=== PATIENT | female | born 1950 | race Caucasian/White ===

== ENCOUNTER → 2017-12-21 08:33 | Outpatient (CLI) | payer MEDICARE, OTHER, SELFPAY ==
[2017-12-21 09:35] LABS: Add Manual Diff / Slide Review NO; Basophils Percent Auto 0.8 % (0-2); Eosinophils Percent Auto 3.1 % (2-4); Hematocrit 36.5 % (36-46); Hemoglobin 12.7 g/dL (12.0-16.0); Lymphocytes Percent Auto 32.5 % (25-40); Mean Corpuscular HGB Conc 34.7 % (30-36); Mean Corpuscular Hemoglobin 29.1 PG (26-34); Monocytes Percent Auto 5.9 % (3-14); Neutrophils Absolute Auto 3200 /uL (3000-5900); Neutrophils Percent Auto 57.7 % (50-75); Platelet Count 239 X10^3/uL (150-400); Red Blood Cell Count 4.34 X10^6/uL (4.0-5.2); Red Cell Distribution Width 13.9 % (11.6-14.8); White Blood Cell Count 5.5 X10^3/uL (4.5-11.0)
[2017-12-21 09:48] LABS: Alanine Aminotransferase 19 IU/L (9-52); Albumin 4.1 g/dL (3.5-5.0); Albumin Globulin Ratio 1.3 (1.0-2.8); Alkaline Phosphatase 53 U/L (38-126); Aspartate Aminotransferase 18 IU/L (14-36); Bilirubin Total 0.6 mg/dL (0.2-1.3); Blood Urea Nitrogen 24 mg/dL (7-17); Calcium 9.5 mg/dL (8.4-10.2); Carbon Dioxide 28 mmol/L (22-32); Chloride 103 mmol/L (98-107); Cholesterol 174 mg/dL (140-199); Estimated Glomerular Filt Rate > 60.0 mL/min (>60); Globulin 3.2 g/dL (1.7-4.1); Glucose 180 mg/dL (80-110); HDL Cholesterol 49 mg/dL (40-60); HEMOLYSIS < 15 (0-50); LDL Cholesterol Calculated 97 mg/dL (<100); Sodium 141 mmol/L (137-145); Total Protein 7.3 g/dL (6.3-8.2); Triglycerides 142 mg/dL (35-150)
[2017-12-21 10:05] LABS: Hemoglobin A1C% w Est Avg Glu 7.9 % (4.0-6.0)
[2017-12-21 10:06] LABS: Creatinine Urine Random 66.1 mg/dL
[2017-12-21 10:12] LABS: Microalbumin Urine Random < 0.6 mg/dL (0-1.6)
[2017-12-21 10:50] LABS: Thyroid Stimulating Hormone 2.02 uIU/mL (0.47-4.68)
== END ==
PROVIDERS: PCP Family Medicine; Visit Provider Family Medicine
DX: E78.2 Mixed hyperlipidemia (principal); E11.9 Type 2 diabetes mellitus without complications
CPT/HCPCS: 36415; 80053; 80061; 82043; 82570; 83036; 84443; 85025

== ENCOUNTER → 2018-03-30 11:21 | Outpatient (CLI) | payer MEDICARE, OTHER, SELFPAY ==
[2018-03-30 12:20] LABS: Hemoglobin A1C% w Est Avg Glu 8.6 % (4.0-6.0)
[2018-03-30 12:52] LABS: BUN Creatinine Ratio 25.6 (6-22); Blood Urea Nitrogen 23 mg/dL (7-17); Calcium 9.9 mg/dL (8.4-10.2); Carbon Dioxide 26 mmol/L (22-32); Chloride 102 mmol/L (98-107); Estimated Glomerular Filt Rate > 60.0 mL/min (>60); Glucose 220 mg/dL (80-110); HEMOLYSIS < 15 (0-50); Sodium 143 mmol/L (137-145)
== END ==
PROVIDERS: PCP Family Medicine; Visit Provider Family Medicine
DX: E11.9 Type 2 diabetes mellitus without complications (principal)
CPT/HCPCS: 36415; 80048; 83036

== ENCOUNTER 2018-06-10 10:22 | Emergency (ER) | payer MEDICARE, OTHER, SELFPAY ==
[2018-06-10 10:29] VITALS: BP 153/78; PULSE 68; RESP 16; TEMP 36.3; O2SAT 100
[2018-06-10 10:31] VITALS: BP 163/80; PULSE 68; RESP 16; TEMP 36.3; O2SAT 100; BMI 29.9
[2018-06-10] MEDS: PANTOPRAZOLE 40 MG VIAL IV (10:35)
[2018-06-10] MEDS: SODIUM CHLORIDE 0.9% 1,000 ML 1000 ML IV ×2 (10:35→11:46)
[2018-06-10 10:51] LABS: Add Manual Diff / Slide Review NO; Basophils Percent Auto 0.4 % (0-2); Hemoglobin 14.1 g/dL (12.0-16.0); Lymphocytes Percent Auto 6.1 % (25-40); Mean Corpuscular HGB Conc 34.4 % (30-36); Mean Corpuscular Hemoglobin 28.7 PG (26-34); Mean Corpuscular Volume 83.6 fL (80-100); Monocytes Percent Auto 4.5 % (3-14); Neutrophils Absolute Auto 13900 /uL (3000-5900); Platelet Count 270 X10^3/uL (150-400); White Blood Cell Count 15.7 X10^3/uL (4.5-11.0)
[2018-06-10 11:07] LABS: Alanine Aminotransferase 26 IU/L (9-52); Albumin 4.5 g/dL (3.5-5.0); Albumin Globulin Ratio 1.6 (1.0-2.8); Alkaline Phosphatase 76 U/L (38-126); Aspartate Aminotransferase 14 IU/L (14-36); BUN Creatinine Ratio 25.7 (6-22); Bilirubin Total 0.8 mg/dL (0.2-1.3); Blood Urea Nitrogen 18 mg/dL (7-17); Calcium 9.6 mg/dL (8.4-10.2); Carbon Dioxide 23 mmol/L (22-32); Chloride 100 mmol/L (98-107); Estimated Glomerular Filt Rate > 60.0 mL/min (>60); Globulin 2.9 g/dL (1.7-4.1); Glucose 341 mg/dL (80-110); HEMOLYSIS < 15 (0-50); Lipase 27 U/L (23-300); Potassium 4.7 mmol/L (3.4-5.1); Sodium 140 mmol/L (137-145); Total Protein 7.4 g/dL (6.3-8.2)
[2018-06-10 11:15] LABS: Lactate (Lactic Acid) 2.1 mmol/L (0.7-2.1)
--- NOTE | 2018-06-10 11:42 | ED.NAVMDI ---
HPI - Nausea/Vomiting/Diarrhea General Chief complaint: Nausea/Vomiting/Diarrhea Stated complaint: Nausea / Vomiting / Dizzy Time Seen by Provider: 06/10/18 10:27 Source: patient and EMS Mode of arrival: ambulatory Limitations: no limitations History of Present Illness HPI Narrative: Patient is 67-year-old female who presents with nausea and vomiting ongoing for 2 days she has been unable to keep anything down. She has had some loose stool but not diarrhea. She has not had any traveling or fever. Noone else is sick at. I am unable to tolerate any fluids. MD complaint: nausea and vomiting Location of pain: diffuse Related Data Home Medications Medication Instructions Recorded Confirmed omeprazole 20 mg PO DAILY PRN #0 07/03/11 06/10/18 Calcium 1 dose PO DAILY 06/10/18 06/10/18 Vitamin D3 1 cap PO DAILY 06/10/18 06/10/18 metformin 1,500 mg PO QAM 06/10/18 06/10/18 metformin [Glucophage] 1,000 mg PO QPM 06/10/18 06/10/18 simvastatin [Zocor] 40 mg PO QPM 06/10/18 06/10/18 Previous Rx's Medication Instructions Recorded Glucose: Test Strips 0 str SEECOM SEE INSTRUCTIONS #150 07/21/17 glimepiride [Amaryl] 4 mg PO BID #180 tab 09/16/17 ondansetron 4 mg PO Q8H PRN #10 tab 06/10/18 Allergies Allergy/AdvReac Type Severity Reaction Status Date / Time codeine [CODEINE] Allergy Severe TONGUE Verified 06/10/18 10:31 SWELLS erythromycin base Allergy Mild GI DISTRESS Verified 06/10/18 10:31 [ERYTHROMYCIN BASE] Penicillins Allergy Mild Confusion Verified 06/10/18 10:44 Review of Systems Review of Systems GENERAL: Denies chills, fatigue, malaise, fever, sweats, travel HEENT: Denies sinus pain, ear pain, sore throat, difficulty swallowing, neck pain RESPIRATORY: Denies dyspnea, cough, wheezing, hemoptysis, sputum. CARDIOVASCULAR: Denies chest pain, palpitations, orthopnea, edema GASTROINTESTINAL: Denies nausea, vomiting, abdominal pain, diarrhea, constipation, melena. : See HPI MUSCULOSKELETAL: Denies weakness, joint pain, or bony pain SKIN: No rash, no erythema, no pruritus NEUROLOGIC: Denies weakness, dizziness, headache, numbness, change in speech, confusion PSYCHIATRIC: No concerning psychosocial issues. 12 point review of systems is negative except for those stated above and HPI [facility] Medical History Diabetes (Acute) Hyperlipidemia (Acute) Social History Smoking Status: Former smoker Exam Initial Vital Signs Initial Vital Signs: Vital Signs Temperature 97.3 F L 06/10/18 10:29 Pulse Rate 68 06/10/18 10:29 Respiratory Rate 16 06/10/18 10:29 Blood Pressure 153/78 H 06/10/18 10:29 Pulse Oximetry 100 06/10/18 10:29 GENERAL: Weak appearing elderly female. Normal body habitus. alert and oriented x3 HEENT: Head atraumatic,EOMI, pupils reactive, face symmetric, dry mucous membranes CARDIOVASCULAR: Regular rate and rhythm without murmurs, rubs or gallops. RESPIRATORY: Breath sounds equal bilaterally, no wheezes rales or rhonchi. ABDOMEN: Soft, diffusely tender no guarding or rebound : No CVA tenderness EXTREMITIES: Normal range of motion, no clubbing or edema. Neurovascularly intact NEUROLOGICAL: Alert and oriented x4.Normal gait and speech. Cranial nerves II through XII grossly intact. SKIN: Warm, dry, no laceration, no petechiae, no rashes or lesions. Course Orders Ordered: ED Orders 06/10/18 10:45 Complete Blood Count AUTO DIFF Stat Comprehensive Metabolic Panel Stat Lactate (Lactic Acid) Stat Lipase Stat Discontinued Medications Sodium Chloride (Normal Saline 0.9%) 1,000 mls @ 1,000 mls/hr IV CONT JANINA Last Infusion: 06/10/18 11:44 Dose: 0 mls/hr Admin: 06/10/18 10:35 Dose: 1,000 mls/hr Sodium Chloride (Normal Saline 0.9%) 1,000 mls @ 1,000 mls/hr IV BOLUS ONE Stop: 06/10/18 12:43 Last Infusion: 06/10/18 12:45 Dose: 0 mls/hr Admin: 06/10/18 11:46 Dose: 1,000 mls/hr Sodium Chloride (Normal Saline 0.9%) 1,000 mls @ 250 mls/hr IV BOLUS ONE Stop: 06/10/18 16:45 Last Infusion: 06/10/18 14:15 Dose: 250 mls/hr Admin: 06/10/18 12:47 Dose: 250 mls/hr Metoclopramide HCl (Reglan) 10 mg IV NOW ONE Stop: 06/10/18 12:42 Last Admin: 06/10/18 12:42 Dose: 10 mg Pantoprazole Sodium (Protonix) 40 mg IV NOW ONE Stop: 06/10/18 10:32 Last Admin: 06/10/18 10:35 Dose: 40 mg Vital Signs - 8 hr 06/10/18 10:29 06/10/18 10:31 06/10/18 11:43 Temperature 97.3 F L 97.3 F L Pulse Rate 68 68 80 Respiratory Rate 16 16 Blood Pressure 163/80 H Blood Pressure [Left Arm] 153/78 H 142/74 H Pulse Oximetry 100 100 100 06/10/18 14:09 Temperature Pulse Rate 101 H Respiratory Rate 16 Blood Pressure 132/72 Blood Pressure [Left Arm] Pulse Oximetry 99 MDM - Nausea/Vomiting/Diarrhea Lab Data Attestation: I reviewed the patient's lab results. Anion gap 17 Result diagrams: 06/10/18 10:45 06/10/18 10:45 Lab Results 06/10/18 06/10/18 06/10/18 Range/Units 10:45 10:45 10:45 WBC 15.7 H (4.5-11.0) X10^3/uL RBC 4.90 (4.0-5.2) X10^6/uL Hgb 14.1 (12.0-16.0) g/dL Hct 41.0 (36-46) % MCV 83.6 (80-100) fL MCH 28.7 (26-34) PG MCHC 34.4 (30-36) % RDW 14.0 (11.6-14.8) % Plt Count 270 (150-400) X10^3/uL Neut % (Auto) 89.0 H (50-75) % Lymph % (Auto) 6.1 L (25-40) % [place] % (Auto) 4.5 (3-14) % Eos % (Auto) 0.0 L (2-4) % Baso % (Auto) 0.4 (0-2) % Neut # (Auto) 81202 H (3806-3458) /uL Sodium 140 (137-145) mmol/L Potassium 4.7 (3.4-5.1) mmol/L Chloride 100 (98-107) mmol/L Carbon Dioxide 23 (22-32) mmol/L BUN 18 H (7-17) mg/dL Creatinine 0.70 (0.52-1.04) mg/dL Estimated GFR > 60.0 (>60) mL/min BUN/Creatinine Ratio 25.7 H (6-22) Glucose 341 H (80-110) mg/dL Lactate 2.1 (0.7-2.1) mmol/L Calcium 9.6 (8.4-10.2) mg/dL Total Bilirubin 0.8 (0.2-1.3) mg/dL AST 14 (14-36) IU/L ALT 26 (9-52) IU/L Alkaline Phosphatase 76 (38-126) U/L Total Protein 7.4 (6.3-8.2) g/dL Albumin 4.5 (3.5-5.0) g/dL Globulin 2.9 (1.7-4.1) g/dL Albumin/Globulin Ratio 1.6 (1.0-2.8) Lipase 27 (23-300) U/L Urine Dip Bedside Urine Glucose 1000 mg/dl Bedside Urine Bilirubin - Negative Bedside Urine Ketone +++ 80 Urine Specific Otis 1.030 Bedside Urine Occult Blood - Negative Bedside Urine pH 6.0 Bedside Urine Protein - Negative Bedside Urine Urobilinogen - Negative Bedside Urine Nitrite - Negative Bedside Urine Leukocytes - Negative Esterase MDM Narrative Medical decision making narrative: Patient is no feeling vomiting but is still nauseated. Glucose slightly elevated minimal anion gap. She received 2 and 0.5 L of IV fluid she is tolerating oral fluids. She is able to keep down some kayode amrik and water. She does have some mild leukocytosis. Abdomen is reexamined and remains soft nontender and no localization of pain. This time no sign of DKA likely viral gastroenteritis. Patient overall feels better and ready and able to go. Discharge Plan Departure Patient Disposition: Home Clinical Impression: Gastroenteritis Discharge Date/Time: 06/10/18 14:10 Interventions: ED Discharge Assessment Last Done: 06/10/18 14:09 Instructions: DI for Viral Gastroenteritis -- Adult Activity Restrictions/Additional Instructions: 1) You have been diagnosed with gastroenteritis 2) What to do: Drink frequent but small amounts of fluids. I recommend Gatorade or a Gatorade-like product, as it has small amounts of sugar and salts that improve fluid retention. 3) Take medications as directed: FAXED TO [facility] Zofran 4 mg every 6-8 hours if needed for nausea or vomiting 4) Follow up with your primary care provider in 2-3 days 5) Return to ER if you should have any new or worsening symptoms such as, unable to hold down fluids despite use of anti-nausea medications and the small volume oral rehydration strategy. Prescriptions: New ondansetron 4 mg tablet,disintegrating 4 mg PO Q8H PRN (Reason: nausea and vomiting) Qty: 10 RF: 0 No Action omeprazole 20 mg Tablet,Delayed Release (Dr/Ec) 20 mg PO DAILY PRN (Reason: Acid Reflux) Qty: 0 RF: 0 Glucose: Test Strips SEECOM SEE INSTRUCTIONS Qty: 150 RF: 5 glimepiride [Amaryl] 4 MG tablet 4 mg PO BID Qty: 180 RF: 3 metformin [Glucophage] 1,000 mg tablet 1,000 mg PO QPM RF: 0 metformin 1,000 mg tablet 1,500 mg PO QAM RF: 0 Calcium 1 dose PO DAILY RF: 0 Vitamin D3 1 cap PO DAILY RF: 0 simvastatin [Zocor] 40 mg tablet 40 mg PO QPM RF: 0 Referrals: Lucio Joaquin MD [Primary Care Provider] -
[2018-06-10 11:43] VITALS: BP 142/74; PULSE 80; O2SAT 100
[2018-06-10] MEDS: METOCLOPRAMIDE 10 MG/2 ML INJ IV (12:42)
[2018-06-10] MEDS: SODIUM CHLORIDE 0.9% 1,000 ML 250 ML IV (12:47)
[2018-06-10 14:09] VITALS: BP 132/72; PULSE 101; RESP 16; O2SAT 99
== END 2018-06-10 14:10 | disposition home or self-care (01) ==
PROVIDERS: Emergency Provider Emergency Medicine; PCP Family Medicine
DX: K52.9 Noninfective gastroenteritis and colitis, unspecified (principal)
CPT/HCPCS: 80053; 81003; 83605; 83690; 85025; 96361; 96374; 96375; 99283; 99284; C9113; J2765

== ENCOUNTER → 2018-06-21 10:45 | Outpatient (CLI) | payer MEDICARE, OTHER, SELFPAY ==
[2018-06-21 11:24] LABS: BUN Creatinine Ratio 22.2 (6-22); Blood Urea Nitrogen 20 mg/dL (7-17); Calcium 9.8 mg/dL (8.4-10.2); Carbon Dioxide 27 mmol/L (22-32); Chloride 94 mmol/L (98-107); Estimated Glomerular Filt Rate > 60.0 mL/min (>60); Glucose 394 mg/dL (80-110); HEMOLYSIS < 15 (0-50); Potassium 4.9 mmol/L (3.4-5.1); Sodium 135 mmol/L (137-145)
== END ==
PROVIDERS: PCP Family Medicine; Visit Provider Family Medicine
DX: E11.9 Type 2 diabetes mellitus without complications (principal)
CPT/HCPCS: 36415; 80048; 83036

== ENCOUNTER → 2018-06-23 15:27 | Outpatient (CLI) | payer MEDICARE, OTHER, SELFPAY ==
--- NOTE | 2018-06-23 15:29 | DI.MRI.S_ITS ---
PROCEDURE: MR HEAD/BRAIN WO CON INDICATIONS: vertigo TECHNIQUE: Non-contrast axial T1 spin echo, axial T2 fast spin echo, sagittal and axial FLAIR, coronal T2 fast spin echo, axial gradient echo, axial diffusion and ADC through the brain. COMPARISON: None. FINDINGS: Image quality: Incomplete examination. The examination was terminated at the patient's request because of claustrophobia. CSF spaces: Ventricles appear symmetric in size and shape. Basal cisterns are patent. No extra-axial fluid collections. Brain: Diffusion-weighted images show restricted diffusion involving the right cerebellar hemisphere extending to the cerebellar tonsil with associated edema, consistent with subacute infarct. There is a small area of old infarct in the left parietal lobe. No intracranial bleeds or mass effects. There is mild cerebral volume loss for age. There are mild periventricular and deep white matter chronic small vessel ischemic changes. Brainstem appears normal. No chronic ischemic insults. Normal intravascular flow voids are present. Skull and face: Calvarial bone marrow is normal in signal. Orbits are normal. Sinuses: Sinuses and mastoids are clear. IMPRESSION: 1. Subacute infarction of the right cerebellum. 2. 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 3. Incomplete examination. The patient was unable to tolerate the tests because of claustrophobia. Recommend CT angiogram of the head and neck for further evaluation. I could not reach Dr. Joaquin to give the result since it is after his office hour. The patient was advised to go to the ER. The result was discussed with ER physician Dr. Perez on 06/23/2018 at 06/23/2018. Dictated by: Nathan Menendez M.D. on 06/23/2018 at 17:27 Transcribed by: SARA on 06/23/2018 at 17:41 Approved by: Nathan Meenndez M.D. on 06/23/2018 at 18:04
== END ==
PROVIDERS: PCP Family Medicine; Visit Provider Family Medicine
DX: I63.9 Cerebral infarction, unspecified (principal); F40.240 Claustrophobia; R42 Dizziness and giddiness; E11.9 Type 2 diabetes mellitus without complications
CPT/HCPCS: 70551

== ENCOUNTER 2018-06-23 18:13 | Emergency (ER) | payer MEDICARE, OTHER, SELFPAY ==
[2018-06-23 18:18] VITALS: BP 141/75; PULSE 98; RESP 16; TEMP 36.6; O2SAT 100; BMI 29.9
--- NOTE | 2018-06-23 18:21 | ED.NEUROSD ---
HPI - Neuro Symptoms/Deficit General Chief Complaint: Neuro Symptoms/Deficit Stated Complaint: thinks she had a stroke Time Seen by Provider: 06/23/18 18:20 Source: patient and family Mode of arrival: ambulatory Limitations: no limitations History of Present Illness HPI Narrative: Patient is a 67-year-old female seen here in the emergency department earlier this month for nausea and vomiting. According to that note patient was treated for the nausea and vomiting and discharged home. They followed up with their primary care doctor. Does appear that at some point she started to complain more of lightheadedness and vertigo sensations. Her primary doctor ordered an MRI which she had performed earlier today. That report is attached to this note. It was an incomplete report secondary to the patient's inability to tolerate the MRI secondary to claustrophobia. There was concern about a subacute cerebellar infarct. Patient was sent here to the emergency department for evaluation. Patient states that she still continues to be lightheaded with episodes of dizziness. She states that the medication she has been taking for the nausea and the dizziness have been helping her symptoms. She states that overall she feels better than what she did earlier this month but is still continues to have symptoms. No vision changes. No numbness or tingling the arms and legs. Related Data Home Medications Medication Instructions Recorded Confirmed omeprazole 20 mg PO DAILY PRN #0 07/03/11 06/16/18 Calcium 1 dose PO DAILY 06/10/18 06/16/18 Vitamin D3 1 cap PO DAILY 06/10/18 06/16/18 metformin 1,500 mg PO QAM 06/10/18 06/16/18 metformin [Glucophage] 1,000 mg PO QPM 06/10/18 06/16/18 simvastatin [Zocor] 40 mg PO QPM 06/10/18 06/16/18 meloxicam 7.5 mg tablet 7.5 mg PO BID tab 06/16/18 06/16/18 Previous Rx's Medication Instructions Recorded Glucose: Test Strips 0 str SEECOM SEE INSTRUCTIONS #150 07/21/17 glimepiride [Amaryl] 4 mg PO BID #180 tab 09/16/17 ondansetron 4 mg disintegrating 4 mg PO Q8H PRN #30 tab 06/11/18 tablet lorazepam 0.5 mg tablet 0.25 mg SL BID-TID PRN #20 tab 06/14/18 pioglitazone 15 mg tablet 15 mg PO DAILY #30 tab 06/21/18 Allergies Allergy/AdvReac Type Severity Reaction Status Date / Time codeine [CODEINE] Allergy Severe TONGUE Verified 06/23/18 18:18 SWELLS erythromycin base Allergy Mild GI DISTRESS Verified 06/23/18 18:18 [ERYTHROMYCIN BASE] Penicillins Allergy Mild Confusion Verified 06/23/18 18:18 Review of Systems Review of Systems All systems reviewed & are unremarkable except as noted in HPI and below Constitutional Denies body ache(s), Denies chills, Denies fatigue, Denies fever(s), Denies frequent falls, Denies headache(s), Denies lethargy, Denies malaise and Denies weakness Eyes Denies blurry vision, Denies change in vision, Denies diplopia, Denies loss of vision and Denies photophobia ENT Ears, Nose, Mouth, and Throat: Reports vertigo, Reports dizziness, Denies facial pain, Denies headache(s), Denies nasal congestion, Reports disequilibrium, Denies sore throat and Denies throat swelling Cardiovascular Denies chest pain, Denies edema, Denies palpitations and Denies dyspnea Respiratory Denies cough and Denies dyspnea Gastrointestinal Gastrointestinal: Denies abdominal pain, Denies dyspepsia, Reports nausea and Denies vomiting Genitourinary Denies dysuria and Denies flank pain Musculoskeletal Denies myalgias, Denies arthralgias, Denies numbness and Denies tingling Integumentary/Breasts Denies lesions and Denies rash Neurologic Denies abnormal movements, Denies abnormal speech, Denies behavioral changes, Denies confusion, Reports vertigo, Reports dizziness, Denies frequent falls, Denies headache(s), Denies focal weakness, Denies loss of vision, Denies numbness, Denies radicular pain, Denies sensory deficit, Denies tingling, Denies paresthesias, Reports disequilibrium and Denies weakness Psychiatric Denies behavioral changes and Denies confusion Endocrine Denies fatigue and Denies palpitations Hematologic/Lymphatic Comments: Not on anticoagulation Allergic/Immunologic Denies throat swelling PFSH Medical History Diabetes (Acute) Hyperlipidemia (Acute) Surgical History No pertinent past surgical history (Acute) Social History Smoking Status: Former smoker Exam Initial Vital Signs Initial Vital Signs: Vital Signs Temperature 97.8 F 06/23/18 18:18 Pulse Rate 98 H 06/23/18 18:18 Respiratory Rate 16 06/23/18 18:18 Blood Pressure 141/75 H 06/23/18 18:18 Pulse Oximetry 100 06/23/18 18:18 Const General: cooperative, healthy appearing, comfortable, well developed, well groomed and No acute distress Orientation: alert, awake and oriented x3 HENMT Head: normal to inspection, normocephalic and atraumatic Eyes Pupils: PERRL Resp Effort & Inspection: normal respiratory effort Auscultation: clear to auscultation bilaterally Cardio Rate: regular rate Rhythm: regular rhythm Pulses: radial pulses present GI Inspection: non-distended Palpation: soft, No firm and No tender Back/Spine/Pelvis Back: No CVA tenderness Skin Lesions: no lesions Rashes: no rashes Neuro General: alert, awake, oriented x3, moves all extremities, CN's II-XI intact bilaterally and not confused Cranial Nerves: CN's II-XI intact bilaterally Cognition: normal cognition Speech: speech normal Motor: muscle tone normal throughout Sensory Exam: no sensory deficits noted Coordination: [id number] test normal, Romberg test normal and Does not sway with eyes open Extrem General: normal to inspection and capillary refill normal Psych Appearance: grossly normal Affect: normal affect Attitude: cooperative Thought Process: normal Scores NIH Stroke Scale Level of Conciousness: Alert, keenly responsive Ask month/age: Answers both questions correctly. Open/close eyes, close hand: Performs both tasks correctly Best gaze horizontal: Normal Visual skinner: No visual loss Facial palsy: Normal symetrical movement Left arm drift: No drift for full 10 sec Right arm drift: No drift for full 10 sec Left leg drift: No drift for full 10 sec Right leg drift: No drift for full 10 sec Limb ataxia: Present in two limbs Sensory on face/arms/legs: Normal, no sensory loss Best language: No aphasia, normal Dysarthria: Normal Extinction or inattention: No abnormality Total NIH Stroke scale score: 2 Course Orders Ordered: ED Orders 06/23/18 18:22 CT angio head and neck Stat 06/23/18 18:29 EKG-12 Lead Stat 06/23/18 18:35 Basic Metabolic Panel Stat Complete Blood Count AUTO DIFF Stat Partial Thromboplastin Time Stat Prothrombin Time INR Stat Sodium Chloride (Normal Saline 0.9%) 1,000 mls @ 150 mls/hr IV CONT JANINA Last Admin: 06/23/18 19:11 Dose: 150 mls/hr Discontinued Medications Aspirin (Aspirin) 325 mg PO NOW ONE Stop: 06/23/18 20:11 Last Admin: 06/23/18 20:20 Dose: 325 mg Vital Signs - 8 hr 06/23/18 18:18 06/23/18 19:57 06/23/18 21:00 Temperature 97.8 F Pulse Rate 98 H 94 H 88 Respiratory Rate 16 14 11 L Blood Pressure 141/75 H Blood Pressure [Left Arm] 124/77 116/62 Pulse Oximetry 100 97 99 06/23/18 22:26 Temperature Pulse Rate 86 Respiratory Rate 14 Blood Pressure Blood Pressure [Left Arm] 119/59 L Pulse Oximetry 96 MDM - Neuro Symptoms/Deficit Medical Records Attestation: I reviewed the patient's medical records. Lab Data Attestation: I reviewed the patient's lab results. Result diagrams: 06/23/18 18:35 06/23/18 18:35 Lab Results 06/23/18 06/23/18 06/23/18 Range/Units 18:35 18:35 18:35 WBC 9.8 (4.5-11.0) X10^3/uL RBC 5.09 (4.0-5.2) X10^6/uL Hgb 14.6 (12.0-16.0) g/dL Hct 42.0 (36-46) % MCV 82.5 (80-100) fL MCH 28.7 (26-34) PG MCHC 34.8 (30-36) % RDW 13.9 (11.6-14.8) % Plt Count 271 (150-400) X10^3/uL Neut % (Auto) 71.5 (50-75) % Lymph % (Auto) 20.6 L (25-40) % Jerome % (Auto) 6.6 (3-14) % Eos % (Auto) 0.7 L (2-4) % Baso % (Auto) 0.6 (0-2) % Neut # (Auto) 7000 (4437-7513) /uL PT (10.1-12.7) SECONDS INR (0.9-1.3) APTT 27 (26.4-36.2) SECONDS Sodium 134 L (137-145) mmol/L Potassium 4.4 (3.4-5.1) mmol/L Chloride 97 L (98-107) mmol/L Carbon Dioxide 26 (22-32) mmol/L BUN 16 (7-17) mg/dL Creatinine 0.70 (0.52-1.04) mg/dL Estimated GFR > 60.0 (>60) mL/min BUN/Creatinine Ratio 22.9 H (6-22) Glucose 302 H (80-110) mg/dL Calcium 9.4 (8.4-10.2) mg/dL 06/23/18 Range/Units 18:35 WBC (4.5-11.0) X10^3/uL RBC (4.0-5.2) X10^6/uL Hgb (12.0-16.0) g/dL Hct (36-46) % MCV (80-100) fL MCH (26-34) PG MCHC (30-36) % RDW (11.6-14.8) % Plt Count (150-400) X10^3/uL Neut % (Auto) (50-75) % Lymph % (Auto) (25-40) % Jerome % (Auto) (3-14) % Eos % (Auto) (2-4) % Baso % (Auto) (0-2) % Neut # (Auto) (9539-3405) /uL PT 11.2 (10.1-12.7) SECONDS INR 1.0 (0.9-1.3) APTT (26.4-36.2) SECONDS Sodium (137-145) mmol/L Potassium (3.4-5.1) mmol/L Chloride (98-107) mmol/L Carbon Dioxide (22-32) mmol/L BUN (7-17) mg/dL Creatinine (0.52-1.04) mg/dL Estimated GFR (>60) mL/min BUN/Creatinine Ratio (6-22) Glucose (80-110) mg/dL Calcium (8.4-10.2) mg/dL Imaging Data Brain MRI: Radiologist's impression: [address] [address] Magnetic Resonance Report Signed Patient: Kelly Jernigan MR#: [id number] : 1950 Acct:[id number] Age/Sex: 67 / F Date of Service: 06/23/18 Loc: MRI Accession Number: [id number] Procedure: MR head/brain wo con Ordering Provider: Lucio Joaquin MD PROCEDURE: MR HEAD/BRAIN WO CON INDICATIONS: vertigo TECHNIQUE: Non-contrast axial T1 spin echo, axial T2 fast spin echo, sagittal and axial FLAIR, coronal T2 fast spin echo, axial gradient echo, axial diffusion and ADC through the brain. COMPARISON: None. FINDINGS: Image quality: Incomplete examination. The examination was terminated at the patient's request because of claustrophobia. CSF spaces: Ventricles appear symmetric in size and shape. Basal cisterns are patent. No extra-axial fluid collections. Brain: Diffusion-weighted images show restricted diffusion involving the right cerebellar hemisphere extending to the cerebellar tonsil with associated edema, consistent with subacute infarct. There is a small area of old infarct in the left parietal lobe. No intracranial bleeds or mass effects. There is mild cerebral volume loss for age. There are mild periventricular and deep white matter chronic small vessel ischemic changes. Brainstem appears normal. No chronic ischemic insults. Normal intravascular flow voids are present. Skull and face: Calvarial bone marrow is normal in signal. Orbits are normal. Sinuses: Sinuses and mastoids are clear. IMPRESSION: 1. Subacute infarction of the right cerebellum. 2. 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 3. Incomplete examination. The patient was unable to tolerate the tests because of claustrophobia. Recommend CT angiogram of the head and neck for further evaluation. I could not reach Dr. Joaquin to give the result since it is after his office hour. The patient was advised to go to the ER. The result was discussed with ER physician Dr. Perez on 06/23/2018 at 06/23/2018. Dictated by: Nathan Menendez M.D. on 06/23/2018 at 17:27 Transcribed by: SARA on 06/23/2018 at 17:41 Approved by: Nathan Menendez M.D. on 06/23/2018 at 18:04 CTA head and neck : Radiologist's impression: PROCEDURE: CT ANGIO HEAD AND NECK INDICATIONS: MRI concerning for cerebellum stroke TECHNIQUE: Pre-contrast 4.5 mm thick sections acquired from the foramen magnum to the vertex. After the administration of intravenous contrast, 1 mm thick sections acquired from the aortic arch through the [facility] [place] [facility] [place]. Post-contrast 4.5 mm thick sections then re-acquired from the foramen magnum to the vertex. 3-dimensional epctugg-ndmyrerdb-iohkfgdyiw (MIP) and/or volume rendering reformats were acquired of the central intracranial vasculature and neck separately. COMPARISON: [facility], MR, MR HEAD/BRAIN WO CON, 06/23/2018, 15:44. FINDINGS: Image quality: Excellent. BRAIN: CSF spaces: Ventricles are normal in size and shape. Basal cisterns are patent. No extra-axial fluid collections. Brain: No midline shift. No intracranial bleeds or masses. Hypodensity involving the right cerebellar hemisphere, in keeping with infarction on the earlier comparison MR study. Skull and face: Calvarium and facial bones appear intact, without suspicious lesions. Orbits appear normal. Sinuses: Sinuses and mastoids are clear. HEAD CT ANGIOGRAPHY: Anterior circulation: Intracranial internal carotid arteries are normal in size and flow. The flow within the paired anterior cerebral arteries is normal and symmetric. The flow within the middle cerebral arteries is normal and symmetric. No aneurysms are seen. Posterior circulation: Visualized portions of the vertebral arteries demonstrate normal caliber, and join to form a normal appearing basilar artery. Flow within the posterior cerebral arteries is normal and symmetric. No aneurysms are seen. NECK CT ANGIOGRAPHY: Carotid system: The great vessels demonstrate a conventional anatomy as they arise from the aortic arch. The origins of the common carotid arteries appear patent. The common carotid arteries demonstrate normal caliber and courses. The bifurcation regions are both widely patent. The internal carotid arteries demonstrate normal calibers and courses. Posterior circulation: The origins of the vertebral arteries both appear widely patent. Dominant left vertebral artery. Cervical segment of the right vertebral artery appears occluded. There is reconstitution of the distal V4 segment which is diminutive Normal appearing basilar artery. Soft tissues: Visualized neck soft tissues demonstrate no suspicious abnormalities. Bones: No suspicious bony lesions. Straightening of the normal cervical lordosis and diffuse discogenic changes. IMPRESSION: Occlusion of the right vertebral artery from the origin to the reconstituted right V4 segment, which is diminutive although appears contrast opacified. Hypodensity involving the right cerebellar hemisphere in keeping with acute infarct as seen on the comparison MRI brain dated same day. No intracranial local stenosis or occlusion. Mild carotid atherosclerosis however no hemodynamically significant ICA stenosis. Findings were personally discussed with Dr. Salas in the emergency department 1944 hours on 06/23/18 Any quantitative measurements of stenosis were performed using NASCET criteria. Dictated by: Oral Weathers M.D. on 06/23/2018 at 19:32 ECG Data Attestation: I personally reviewed and interpreted this ECG as follows: Prior ECG tracings: not available for review Interpretation: Sinus rhythm Ventricular rate of 96 Normal axis Normal QRS Normal QTC Q-waves lead [address] T wave changes MDM Narrative Medical decision making narrative: Unknown as to the exact onset of her symptoms. Could have been as long as 3 weeks ago. She states that she has been improving since that time but still having symptoms. MRI and CT scan concerning of a more acute event happening in the right cerebellar area. She also has an occlusion of the right vertebral artery. I discussed the case with Dr. Jimenez with the stroke team at [facility] who evaluated the patient's MRI and CTA. He recommended giving the patient an aspirin which was done. He stated that there appeared to be some minor edema in the right cerebellar region. He thought that because of this and observation. Would be warranted. He did accept the patient in transfer. Patient was kept here in the emergency department until a bed opened up at [facility]. I did inform the patient of the transfer. I also informed her of the results of the CT scan. Her was at bedside for this discussions. They both expressed understanding and agreement. Patient is stable for transport. Critical Care Time Critical Care Time: Yes Total Critical Care Time: 35 Attestation: The high probability of a clinically significant, sudden or life threatening deterioration of the neurologic system(s) required my full and direct attention, intervention and personal management. The aggregate critical care time was 35 minutes. This time is in addition to time spent performing reported procedures but includes the following: [] Data Review and interpretation [] Patient assessment and monitoring of vital signs [] Documentation [] Medication orders and management Coordination of care Discharge Plan Departure Patient Disposition: [facility] Clinical Impression: Cerebellar infarction, Occlusion of right vertebral artery Prescriptions: No Action omeprazole 20 mg Tablet,Delayed Release (Dr/Ec) 20 mg PO DAILY PRN (Reason: Acid Reflux) Qty: 0 RF: 0 Glucose: Test Strips SEECOM SEE INSTRUCTIONS Qty: 150 RF: 5 glimepiride [Amaryl] 4 MG tablet 4 mg PO BID Qty: 180 RF: 3 ondansetron 4 mg tablet,disintegrating 4 mg PO Q8H PRN (Reason: nausea and vomiting) Qty: 30 RF: 0 lorazepam [Ativan] 0.5 mg tablet 0.25 mg SL BID-TID PRN (Reason: dizziness or vertigo) Qty: 20 RF: 0 pioglitazone [Actos] 15 mg tablet 15 mg PO DAILY Qty: 30 RF: 3 meloxicam 7.5 mg tablet 7.5 mg PO BID RF: 0 metformin [Glucophage] 1,000 mg tablet 1,000 mg PO QPM RF: 0 metformin 1,000 mg tablet 1,500 mg PO QAM RF: 0 Calcium 1 dose PO DAILY RF: 0 Vitamin D3 1 cap PO DAILY RF: 0 simvastatin [Zocor] 40 mg tablet 40 mg PO QPM RF: 0
--- NOTE | 2018-06-23 18:44 | PC.NURSE ---
2 weeks ago pt was here in ED for dizziness. Pt followed up with pcp following visit and was scheduled for outpatient MRI. After MRI pt was called back to go to the ED due to results. pt is still feeling dizzy which has gotten better over the last 2 weeks but has never been gone. Pt feels like she is lightheaded. Pt denies any blurred vision or pain and is alert/oriented
[2018-06-23 18:51] LABS: Add Manual Diff / Slide Review NO; Basophils Percent Auto 0.6 % (0-2); Eosinophils Percent Auto 0.7 % (2-4); Hemoglobin 14.6 g/dL (12.0-16.0); Lymphocytes Percent Auto 20.6 % (25-40); Mean Corpuscular HGB Conc 34.8 % (30-36); Mean Corpuscular Hemoglobin 28.7 PG (26-34); Mean Corpuscular Volume 82.5 fL (80-100); Monocytes Percent Auto 6.6 % (3-14); Neutrophils Absolute Auto 7000 /uL (1500-7000); Neutrophils Percent Auto 71.5 % (50-75); Platelet Count 271 X10^3/uL (150-400); Red Blood Cell Count 5.09 X10^6/uL (4.0-5.2); Red Cell Distribution Width 13.9 % (11.6-14.8); White Blood Cell Count 9.8 X10^3/uL (4.5-11.0)
[2018-06-23 18:56] LABS: Prothrombin Time 11.2 SECONDS (10.1-12.7)
[2018-06-23 19:04] LABS: PTT Partial Thromboplastin Tim 27 SECONDS (26.4-36.2)
[2018-06-23] MEDS: SODIUM CHLORIDE 0.9% 1,000 ML 150 ML IV (19:11)
[2018-06-23 19:20] LABS: BUN Creatinine Ratio 22.9 (6-22); Blood Urea Nitrogen 16 mg/dL (7-17); Calcium 9.4 mg/dL (8.4-10.2); Carbon Dioxide 26 mmol/L (22-32); Chloride 97 mmol/L (98-107); Estimated Glomerular Filt Rate > 60.0 mL/min (>60); Glucose 302 mg/dL (80-110); HEMOLYSIS 16 (0-50); Potassium 4.4 mmol/L (3.4-5.1); Sodium 134 mmol/L (137-145)
[2018-06-23 19:57] VITALS: BP 124/77; PULSE 94; RESP 14; O2SAT 97
[2018-06-23] MEDS: ASPIRIN 325 MG TABLET PO (20:20)
[2018-06-23 21:00] VITALS: BP 116/62; PULSE 88; RESP 11; O2SAT 99
[2018-06-23 22:26] VITALS: BP 119/59; PULSE 86; RESP 14; O2SAT 96
--- NOTE | 2018-06-23 22:44 | PC.NURSE ---
Report called to Belem WALLACE at [facility]
[2018-06-23 23:48] VITALS: BP 113/69; PULSE 84; RESP 15; O2SAT 99
== END 2018-06-24 00:25 | disposition short-term general hospital (02) ==
PROVIDERS: Emergency Provider Emergency Medicine; PCP Family Medicine
DX: I63.9 Cerebral infarction, unspecified (principal); I65.01 Occlusion and stenosis of right vertebral artery
CPT/HCPCS: 36591; 70496; 70498; 70551; 80048; 85025; 85610; 85730; 93005; 96360; 96361; 99283; 99285; 99291; Q9967

== ENCOUNTER → 2018-08-11 10:05 | Outpatient (CLI) | payer MEDICARE, OTHER, SELFPAY ==
[2018-08-11 12:06] LABS: Hemoglobin A1C% w Est Avg Glu 9.2 % (4.0-6.0)
[2018-08-11 12:18] LABS: BUN Creatinine Ratio 28.8 (6-22); Blood Urea Nitrogen 23 mg/dL (7-17); Calcium 9.9 mg/dL (8.4-10.2); Carbon Dioxide 29 mmol/L (22-32); Chloride 100 mmol/L (98-107); Cholesterol 164 mg/dL (140-199); Estimated Glomerular Filt Rate > 60.0 mL/min (>60); Glucose 220 mg/dL (80-110); HDL Cholesterol 46 mg/dL (40-60); HEMOLYSIS < 15 (0-50); LDL Cholesterol Calculated 94 mg/dL (<100); Sodium 138 mmol/L (137-145); Triglycerides 121 mg/dL (35-150)
--- NOTE | 2018-09-03 15:47 | PM.CARDMON.1 ---
Correspondence Renew Clerk Report Referral & Results Date Patient Seen: 08/11/18 Requesting provider: Lucio Joaquin Indication: Dizziness and giddiness Duration of monitoring (days): 14 Diary information: There were no diary entries from the patient There is 1 patient triggered events associated with sinus rhythm Data: Minimum heart rate identified was 56 beats per minute at 05:08 on 08/25/2018 Maximum sinus heart rate was 150 beats per minute at 12:33 on 08/18/2018 Maximum overall heart rate was 187 beats per minute during an 8 beat run of SVT at 10:31 on 08/16/2018 Less than 1% of identified beats or either ventricular supraventricular in origin Patient 23 runs of an SVT fastest being 187 beats per minute the longest lasting 13.2 sec Impression: Patient with relatively infrequent runs of short duration SVT as above. No other significant dysrhythmia identified No way to correlate patient's symptoms with identified dysrhythmia given lack of patient in put
== END ==
PROVIDERS: PCP Family Medicine; Visit Provider Family Medicine
DX: R42 Dizziness and giddiness (principal); I48.91 Unspecified atrial fibrillation; E11.9 Type 2 diabetes mellitus without complications; E78.2 Mixed hyperlipidemia
CPT/HCPCS: 0296T; 0298T; 36415; 80048; 80061; 83036

== ENCOUNTER 2018-08-11 14:30 | Outpatient (RCR) | payer MEDICARE, OTHER, SELFPAY | END 2018-08-16 14:10 | LOC: SP 14:30 | PROVIDERS: PCP Family Medicine; Visit Provider Physical Medicine & Rehabilitation | DX: I63.9 Cerebral infarction, unspecified (principal) | CPT/HCPCS: 96125 ==

== ENCOUNTER 2018-08-13 10:30 | Outpatient (RCR) | payer MEDICARE, OTHER, SELFPAY ==
--- NOTE | 2018-07-12 14:14 | OT.OP.EVAL ---
Visit Care Team Role Provider Type Lucio Joaquin MD Primary Care Provider Physician Specialty: Family Practice Address: [address] [place] [address], [id number] Email: [email or web address] Levi Lanza MD Attending Provider Non-Staff Specialty: Physical Medicine and Rehab Address: [address] [place] [address], [address], [place], [address] Fax: Email: Occupational Therapy Initial Evaluation OT Outpatient Adult Evaluation Start: 07/12/18 13:25 Freq: Status: Active Protocol: Document 07/12/18 13:26 AMS (Rec: 07/12/18 14:13 AMS [email or web address]) General Information Visit Start Time 12:30 Visit Stop Time 15:18 Total Visit Minutes 48 Visit Number 07/15 Plan of Care Dates 07/12/18-10/04/18 Insurance Information Medicare Treatment Setting Outpatient Care Note Type Initial Evaluation Identification Confirmed Yes Identification Confirmed By Patient and Patient Goals Get strength back; improve endurance Medical History Medical History Form completed by patient and placed in paper chart. Significant for acute cerebellar stroke; type 2 diabetes mellitus; essential hypertension; strabismus; bilateral hearing loss; and dizziness. Patient received inpatient intensive rehab (OT, PT,HOT TOP LINER HELPER) at [facility] located in [place], [place] from 06/26/2018 - 07/03/2018. Patient was d/c to home w/ spouse. Patient is currently receiving outpatient PT 1 to 2 x per week based on therapist availability; patient is scheduled for outpatient HOT TOP LINER HELPER evaluation on 07/19/18. Patient is to ambulate w/ SPC and/or walking sticks at this time based on patient report. However, patient arrived to OT evaluation w/ no assistive mobility AE. Therapy Pain Assessment When Pain Assessed pre-tx Pain Present Denied Pain Patient Questionnaires Quick Dash UE Score 43.18 Quick Dash UE Impairment 40 to 59% Impaired (Score 40- 59) ADLs Basic ADLs Mildly Impaired Self-Feeding Ability Mod independent Upper Body Dressing Ability Mod independent. Important to note that patient denied recently attempting to manage buttons. Lower Body Dressing Ability Mod independent Footware Ability Mod independent Oral Care Ability Mod independent Bathing Type Tub/shower combo Bathing Ability stands by during tub/ shower transfers. provides min phys assist for UB bathing (relative to washing of back) Devices Shower chair - obtained at [facility] Grooming Ability Mod independent Tolieting Ability Mod independent IADLs Meal Preparation Ability Assistance provided by . Patient reports that he is primarily managing meals at this time; however, she has made a salad and other side dishes/appetizers recently without assistance. House Hold Management Assistance w/ heavy chief growth officer. Money Management Shared IADL between patient and her . Vocational Ability Retired. Skill Level Impaired Comments PLOF: Actively walked dog. Membership to [employer]; reported walking on treadmill for about 1 hour and doing basic UB/LB strengthening utilizing available machines. Patient reported preference for varying workouts. Vision Comments Impaired per Medical History Observations Observations Impaired motor coordination. Min to mod difficulty managing multiple objects in palm of hand. Decreased separation of the 2 sides of the R hand. Decreased motor coordination of the R hand; patient reported self-observation relative to impaired motor coordination of the hand w/ typing and with writing. Range of Motion Upper Extremity Functional Limits Within Functional Limits Neurological Assessment - Adult Comments Finger opposition Test Right Minimal Impairment w/ eyes closed (no errors x 5 cycles with eyes closed L hand) Fine Motor Hand Preference Right Goals Treatment Patient instructed in HEP. Instructed on fine motor activities (e.g., cribbage) and provided with firm blue theraputty for home use given history of use of softer/less firm purple theraputty from previous rehabilitation facility. Short Term Goals 1. Patient will demonstrate improved fine motor coordination of the right hand , as evidenced by her ability to complete the 9-Hole Peg Test under 20.0 seconds. 2. Patient will demonstrate improved fine motor coordination of the right hand , as evidenced by her ability to place 11 or more pins in right hand column of the Purdue Pegboard within 30 seconds. Longterm Goals 1. Patient will be modified independent with execution of upper extremity home exercise program utilizing provided written and visual instructions. 2. Patient will demonstrate improved functional independence, as evidenced by score of < 20.0 on the QuickDASH UE Outcome Measure. Assessment/Plan Patient Response Good Rehabilitation Potential Good Impairments Identified ADLs Cognition Coordination/Dexterity Functional Activities Motor Function Weakness Recreational Activities Meaningful Activities Insight Motor Planning Eye-Hand Coordination Treatment Assessment Patient is a 67 year-old female referred to outpatient OT secondary to recent cerebellar stroke. Patient reported that she is not to lift anything heavy for approximately 30 days (at least until follow-up appointment at [facility]). Patient would like to gain her strength back and her overall endurance. Medical History Form was completed by patient and placed in paper chart. Significant for acute cerebellar stroke; type 2 diabetes mellitus; essential hypertension; strabismus; bilateral hearing loss; and dizziness. Patient received inpatient intensive rehab (OT, PT,HOT TOP LINER HELPER) at [facility] located in [place], [place] from 06/26/2018 - 07/03/2018. Patient was d/c to home w/ spouse. Patient is currently receiving outpatient PT 1 to 2 x per week based on therapist availability; patient is scheduled for outpatient HOT TOP LINER HELPER evaluation on 07/19/18. Patient is to ambulate w/ SPC and/or walking sticks at this time based on patient report. However, patient arrived to OT evaluation w/ no assistive mobility AE. Evaluation findings: Right hand dominant female; UE lifting restrictions; decreased independence w/ execution of basic and instrumental activities of daily living; impaired coordination of the right hand ; decreased in-hand manipulation skills; impaired balance; decreased awareness of R UE in space (including awareness of digits in space without visual feedback); and impaired executive function skills. Patient would likely benefit from skilled outpatient OT to maximize her ability to actively incorporate her dominant right hand in daily life, thus, improving her overall functional independence. Home Exercise Program Please refer to treatment section of note for specific details. Reviewed with Patient Home Exercise Program Patient Understanding Good Comment 12 weeks Treatment Frequency Once a Week Therapeutic Contents Active Range of Motion Adaptive Equipment Education Client Education Cognitive Skills Development Functional Activities Home Exercise Program Education Neurodevelopment Treatment Neuromuscular Re-Education Self-Care Stretching/Flexibility Activities Therapeutic Activities Therapeutic Exercises Modalities Modalities As Needed As Prescribed Patient Instruction Home Exercise Program Plan of Care Questions/Concerns Other Patient Recommendations Continue with Current Program Advance per Rehabilitation Protocol Occupational Therapy Assessment OT Outpatient Muscle Testing Start: 07/12/18 13:25 Freq: Status: Active Protocol: Document 07/12/18 13:26 AMS (Rec: 07/12/18 14:13 AMS [email or web address]) Cafeteria Team Leader/Hand Strength Cafeteria Team Leader/Hand Strength Right Cafeteria Team Leader Dynamometer II 57.0 Lateral Pinch Strengh (lbs) 13.7 Palmar Pinch Strength (lbs) 12.3 Left Cafeteria Team Leader Dynamometer II 54.7 Lateral Pinch Strengh (lbs) 11.7 Palmar Pinch Strength (lbs) 10.7 Occupational Therapy Assessment OT Outpatient Standardized Assessments Start: 07/12/18 13:25 Freq: Status: Active Protocol: Document 07/12/18 13:26 AMS (Rec: 07/12/18 14:13 AMS [email or web address]) Purdue Pegboard Test Date of Test Date of Test 07/12/18 Right Hand Trial One 8 Left Hand Trial One 10 Both Hands Trial One 6 Right + Left + Both Hands Trial One 24 Assembly Trial One 14 9-Hole Peg Hand Test Hand Right Date of Test 07/12/18 Therapist Mirian Marvin MSOTR/L Norm For Patients Age/Sex 19.5 +/- 2.3 Comments 07/12/18 = 24.06 (slightly less than 2 SD above the mean) Left Date of Test 07/12/18 Therapist Mirian Marvin MSOTR/L Interpretation Within Normal Range Norm For Patients Age/Sex 21.4 +/- 2.7 Comments 07/12/18 = 22.53 seconds (with 1 SD above the mean)
--- NOTE | 2018-07-26 11:39 | OT.OP.TRT ---
Visit Care Team Role Provider Type Lucio Joaquin MD Primary Care Provider Physician Specialty: Family Practice Address: [address] [place] [address], [id number] Email: [email or web address] Levi Lanza MD Attending Provider Non-Staff Specialty: Physical Medicine and Rehab Address: [address] [place] [address], [address], [place], [address] Email: Occupational Therapy Treatment Note OT Outpatient Treatment Note - Adult Start: 07/12/18 13:25 Freq: Status: Active Protocol: Document 07/26/18 10:19 AMS (Rec: 07/26/18 10:30 AMS [email or web address]) OT Outpatient Adult Treatment Note Session Time Visit Start Time 09:30 Visit Stop Time 10:18 Total Visit Minutes 48 Visit Information Visit Number 08/15 Plan of Care Dates 07/12/18-10/04/18 Setting Treatment Setting Outpatient Care Visit Type Note Type Treatment Note General Information General Information Patient is a 67 year-old female referred to outpatient OT secondary to recent cerebellar stroke. Patient reported that she is not to lift anything heavy for approximately 30 days (at least until follow-up appointment at [facility]). Patient would like to gain her strength back and her overall endurance. Medical History Form was completed by patient and placed in paper chart. Significant for acute cerebellar stroke; type 2 diabetes mellitus; essential hypertension; strabismus; bilateral hearing loss; and dizziness. Patient received inpatient intensive rehab (OT, PT,HOOP PUNCH OPERATOR HELPER) at [facility] located in [place], [place] from 06/26/2018 - 07/03/2018. Patient was d/c to home w/ spouse. Patient is currently receiving outpatient PT 1 to 2 x per week based on therapist availability; patient is scheduled for outpatient HOOP PUNCH OPERATOR HELPER evaluation on 07/19/18. Patient is to ambulate w/ SPC and/or walking sticks at this time based on patient report. However, patient arrived to OT evaluation w/ no assistive mobility AE. - Subjective Identification Type Name Identification Reconciled With Medical Record Observations I think that the blue theraputty is a little too firm for me right now per Kelly. I played cribbage a couple of times with my . Chief Complaint(s) Restricts Loss of Function Moderate Degree Effect on Activity Moderate Degree Effect on Daily Life Moderate Degree Parent/Guardian/Wax Pourer Expectation/ Patient would like to gain her Goals strength back and her overall endurance. Patient/Caregiver Compliance with Home Good Exercise Program - Objective Objective Measurements Please refer to below for progress towards meeting established OT goals. Min difficulty noted w/ R thumb coordination w/ medium bead opposition 2<->5 digit pads R hand; min difficulty noted w/ small R thumb coordination circles at digit pads. Mod difficulty w/ small bead transfer w/ tees combined w/ tweezers. Mod difficulty locating button in green theraputty; no difficulty locating 2 pennies in theraputty. Short Term Goals 1. Patient will demonstrate improved fine motor coordination of the right hand , as evidenced by her ability to complete the 9-Hole Peg Test under 20.0 seconds. 2. Patient will demonstrate improved fine motor coordination of the right hand , as evidenced by her ability to place 11 or more pins in right hand column of the Purdue Pegboard within 30 seconds. Usp Goals 1. Patient will be modified independent with execution of upper extremity home exercise program utilizing provided written and visual instructions. 07/26/18= HEP upgraded 2. Patient will demonstrate improved functional independence, as evidenced by score of < 20.0 on the QuickDASH UE Outcome Measure. - Treatment 3 Descriptor Object manipulation/fine motor coordination without visual feedback 2 Descriptor Awareness of digits in space 1 Descriptor Object manipulation Complexity Upgraded - Assessment Patient Response to Treatment Good Rehab Potential Good Impairments Identified ADLs Balance Coordination/Dexterity Functional Activities Motor Function Recreational Activities Meaningful Activities Motor Planning Assessment of Overall Progress Improving Assessment of Improvement (+) carry-over of HEP recommendations. Restrictions at this time re: lifting. Decreased speed and efficiency w/ object manipulation of the R hand. Advancement of HEP. Recommend continuation w/ fine motor activities w/ advancement as able. Home Exercise Program Provided w/ medium firm green theraputty. Instructed in toothpick, theraputty, and marble fine motor exercises ( focus on pincer grasp, interpretation of tactile feedback from digits of the right hand without visual information, opposition w/ pad -to-pad motor coordination). Reviewed with Patient/Caregiver Goals Progress Being Made Home Exercise Program Patient/Caregiver Understanding Good - Plan Therapy Recommendations Continue with Current Program Advance per Rehabilitation Protocol Additional Therapy Recommendations Consult w/ PT and HOOP PUNCH OPERATOR HELPER
--- NOTE | 2018-08-13 11:36 | OT.OP.DC ---
Visit Care Team Role Provider Type Lucio Joaquin MD Primary Care Provider Physician Address: [address] [place] [address], [id number] Email: [email or web address] Levi Lanza MD Attending Provider Non-Staff Address: [address] [place] [address], [address], [place], [address] Email: OT Outpatient OT Outpatient Adult Evaluation Start: 07/12/18 13:25 Freq: Status: Active Protocol: Document 07/12/18 13:26 AMS (Rec: 07/12/18 14:13 AMS [email or web address]) General Information Session Time Visit Start Time 12:30 Visit Stop Time 15:18 Total Visit Minutes 48 Visit Information Visit Number 07/15 Plan of Care Dates 07/12/18-10/04/18 Insurance Information Medicare Setting Treatment Setting Outpatient Care Visit Type Note Type Initial Evaluation Identification Identification Confirmed Yes Identification Confirmed By Patient and Patient Patient Goals Get strength back; improve endurance Medical Information Medical History Medical History Form completed by patient and placed in paper chart. Significant for acute cerebellar stroke; type 2 diabetes mellitus; essential hypertension; strabismus; bilateral hearing loss; and dizziness. Patient received inpatient intensive rehab (OT, PT,[facility]) at [facility] located in [place], [place] from 06/26/2018 - 07/03/2018. Patient was d/c to home w/ spouse. Patient is currently receiving outpatient PT 1 to 2 x per week based on therapist availability; patient is scheduled for outpatient [facility] evaluation on 07/19/18. Patient is to ambulate w/ SPC and/or walking sticks at this time based on patient report. However, patient arrived to OT evaluation w/ no assistive mobility AE. Therapy Pain Assessment Pain When Pain Assessed pre-tx Pain Present Pain Present Denied Pain Patient Questionnaires Quick Dash- Upper Extremity Quick Dash UE Score 43.18 Quick Dash UE Impairment 40 to 59% Impaired (Score 40- 59) ADLs Overall Ability Basic ADLs Mildly Impaired Feeding Self-Feeding Ability Mod independent Dressing Upper Body Dressing Ability Mod independent. Important to note that patient denied recently attempting to manage buttons. Lower Body Dressing Ability Mod independent Footware Ability Mod independent Oral Care Oral Care Ability Mod independent Bathing Bathing Type Tub/shower combo Bathing Ability stands by during tub/ shower transfers. provides min phys assist for UB bathing (relative to washing of back) Devices Shower chair - obtained at [facility] Grooming Grooming Ability Mod independent Toileting Tolieting Ability Mod independent IADLs Meal Preparation Meal Preparation Ability Assistance provided by . Patient reports that he is primarily managing meals at this time; however, she has made a salad and other side dishes/appetizers recently without assistance. Civil Rights Investigator House Hold Management Assistance w/ heavy off track betting manager. Money Management Money Management Shared IADL between patient and her . Vocation Vocational Ability Retired. Meaningful Activities Skill Level Impaired Comments PLOF: Actively walked dog. Membership to [employer]; reported walking on treadmill for about 1 hour and doing basic UB/LB strengthening utilizing available machines. Patient reported preference for varying workouts. Vision Vision Comments Impaired per Medical History Observations Observations Observations Impaired motor coordination. Min to mod difficulty managing multiple objects in palm of hand. Decreased separation of the 2 sides of the R hand. Decreased motor coordination of the R hand; patient reported self-observation relative to impaired motor coordination of the hand w/ typing and with writing. Range of Motion Upper Extremity/Lower Extremity Upper Extremity Functional Limits Within Functional Limits Neurological Assessment - Adult Coordination Comments Finger opposition Test Right Minimal Impairment w/ eyes closed (no errors x 5 cycles with eyes closed L hand) Fine Motor Handedness Hand Preference Right Goals Treatment Treatment Patient instructed in HEP. Instructed on fine motor activities (e.g., cribbage) and provided with firm blue theraputty for home use given history of use of softer/less firm purple theraputty from previous rehabilitation facility. Short Term Goals Short Term Goals 1. Patient will demonstrate improved fine motor coordination of the right hand , as evidenced by her ability to complete the 9-Hole Peg Test under 20.0 seconds. 2. Patient will demonstrate improved fine motor coordination of the right hand , as evidenced by her ability to place 11 or more pins in right hand column of the Purdue Pegboard within 30 seconds. Dental Prosthetist Goals Skilled Nursing Goals 1. Patient will be modified independent with execution of upper extremity home exercise program utilizing provided written and visual instructions. 2. Patient will demonstrate improved functional independence, as evidenced by score of < 20.0 on the QuickDASH UE Outcome Measure. Assessment/Plan Assessment Patient Response Good Rehabilitation Potential Good Impairments Identified ADLs Cognition Coordination/Dexterity Functional Activities Motor Function Weakness Recreational Activities Meaningful Activities Insight Motor Planning Eye-Hand Coordination Treatment Assessment Patient is a 67 year-old female referred to outpatient OT secondary to recent cerebellar stroke. Patient reported that she is not to lift anything heavy for approximately 30 days (at least until follow-up appointment at [facility]). Patient would like to gain her strength back and her overall endurance. Medical History Form was completed by patient and placed in paper chart. Significant for acute cerebellar stroke; type 2 diabetes mellitus; essential hypertension; strabismus; bilateral hearing loss; and dizziness. Patient received inpatient intensive rehab (OT, PT,[facility]) at [facility] located in [place], [place] from 06/26/2018 - 07/03/2018. Patient was d/c to home w/ spouse. Patient is currently receiving outpatient PT 1 to 2 x per week based on therapist availability; patient is scheduled for outpatient [facility] evaluation on 07/19/18. Patient is to ambulate w/ SPC and/or walking sticks at this time based on patient report. However, patient arrived to OT evaluation w/ no assistive mobility AE. Evaluation findings: Right hand dominant female; UE lifting restrictions; decreased independence w/ execution of basic and instrumental activities of daily living; impaired coordination of the right hand ; decreased in-hand manipulation skills; impaired balance; decreased awareness of R UE in space (including awareness of digits in space without visual feedback); and impaired executive function skills. Patient would likely benefit from skilled outpatient OT to maximize her ability to actively incorporate her dominant right hand in daily life, thus, improving her overall functional independence. Home Exercise Program Please refer to treatment section of note for specific details. Reviewed with Patient Home Exercise Program Patient Understanding Good Plan Comment 12 weeks Treatment Frequency Once a Week Therapeutic Contents Active Range of Motion Adaptive Equipment Education Client Education Cognitive Skills Development Functional Activities Home Exercise Program Education Neurodevelopment Treatment Neuromuscular Re-Education Self-Care Stretching/Flexibility Activities Therapeutic Activities Therapeutic Exercises Modalities Modalities As Needed As Prescribed Patient Instruction Home Exercise Program Plan of Care Questions/Concerns Other Patient Recommendations Continue with Current Program Advance per Rehabilitation Protocol Sensory Assessment Sensory Profile2 Functional Wrist/Hand Scan Hand Side OT Outpatient Muscle Testing Start: 07/12/18 13:25 Freq: Status: Active Protocol: Document 08/13/18 11:17 AMS (Rec: 08/13/18 11:35 AMS [email or web address]) Digital Photographic Printer/Hand Strength Digital Photographic Printer/Hand Strength Right Digital Photographic Printer Dynamometer II 57.0 Lateral Pinch Strengh (lbs) 13.7 Palmar Pinch Strength (lbs) 12.3 Comments Norms for 65-69 year-old females: R Digital Photographic Printer 49.6 +/- 9.7 (within 1 SD above the mean) R Lateral Pinch 15.0 +/- 2.6 ( within 1 SD below the mean) R 3-Jaw Pinch 14.2 +/- 3.1 ( within 1 SD below the mean) Left Digital Photographic Printer Dynamometer II 54.7 Lateral Pinch Strengh (lbs) 11.7 Palmar Pinch Strength (lbs) 10.7 Comments Norms for 65-69 year-old females: L Digital Photographic Printer 41.0 +/- 8.2 (above 1 SD above the mean) L Lateral Pinch 14.3 +/- 2.8 ( within 1 SD below the mean) L 3-Jaw Pinch 13.7 +/- 3.4 ( within 1 SD below the mean) OT Outpatient Treatment Note - Adult Start: 07/12/18 13:25 Freq: Status: Active Protocol: Document 08/13/18 11:17 AMS (Rec: 08/13/18 11:35 AMS [email or web address]) OT Outpatient Adult Treatment Note Session Time Visit Start Time 10:30 Visit Stop Time 11:10 Total Visit Minutes 40 Visit Information Visit Number 09/12 Plan of Care Dates 07/12/18-10/04/18 Setting Treatment Setting Outpatient Care Visit Type Note Type Treatment Note General Information General Information Patient is a 67 year-old female referred to outpatient OT secondary to recent cerebellar stroke. Patient reported that she is not to lift anything heavy for approximately 30 days (at least until follow-up appointment at [facility]). Patient would like to gain her strength back and her overall endurance. Medical History Form was completed by patient and placed in paper chart. Significant for acute cerebellar stroke; type 2 diabetes mellitus; essential hypertension; strabismus; bilateral hearing loss; and dizziness. Patient received inpatient intensive rehab (OT, PT,[facility]) at [facility] located in [place], [place] from 06/26/2018 - 07/03/2018. Patient was d/c to home w/ spouse. Patient is currently receiving outpatient PT 1 to 2 x per week based on therapist availability; patient is scheduled for outpatient [facility] evaluation on 07/19/18. Patient is to ambulate w/ SPC and/or walking sticks at this time based on patient report. However, patient arrived to OT evaluation w/ no assistive mobility AE. - Subjective Identification Type Name Identification Reconciled With Medical Record Observations I think I am good. I am writing the same as I did before per Kelly. Patient denied any changes in lifting precautions from MD follow-up; patient reported that doctor would like for her to have 2 more MRIs before precautions are lifted. She is also currently wearing a heart monitor (monitoring for 'a-fib '). Patient also reported that outpatient PT has started her on an UE strengthening program. Chief Complaint(s) Restricts Loss of Function Moderate Degree Effect on Activity Moderate Degree Effect on Daily Life Moderate Degree Parent/Guardian/Certified Cytotechnologist Expectation/ Patient would like to gain her Goals strength back and her overall endurance. Patient/Caregiver Compliance with Home Good Exercise Program - Objective Objective Measurements Please refer to below for progress towards meeting established OT goals. Please refer to standardized assessment section for details re: patient's performance. Patient obtained a score of 2. 27 on QuickDASH UE Outcome Measure. Short Term Goals ALL GOALS MET OF 08/13/18 1. Patient will demonstrate improved fine motor coordination of the right hand , as evidenced by her ability to complete the 9-Hole Peg Test under 20.0 seconds. *MET 08/13/18 - completed in 19.4 seconds 2. Patient will demonstrate improved fine motor coordination of the right hand , as evidenced by her ability to place 11 or more pins in right hand column of the Purdue Pegboard within 30 seconds. *MET 08/13/18 - placed 12 pins Skilled Nursing Goals ALL GOALS MET OF 08/13/18 1. Patient will be modified independent with execution of upper extremity home exercise program utilizing provided written and visual instructions. *MET 08/13/18= patient denied questions re: HEP 2. Patient will demonstrate improved functional independence, as evidenced by score of < 20.0 on the QuickDASH UE Outcome Measure. *MET 08/13/18 = obtained a score of 2.27 on QuickDASH UE Outcome Measure - Treatment 3 Descriptor HEP. Patient denied any questions re: current fine motor home exercise program. 2 Descriptor Awareness of digits in space 1 Descriptor Object manipulation - Assessment Patient Response to Treatment Good Rehab Potential Good Impairments Identified ADLs Balance Coordination/Dexterity Functional Activities Motor Function Recreational Activities Meaningful Activities Motor Planning Assessment of Overall Progress Improving Assessment of Improvement Patient has met all short term and shelter goals for occupational therapy; she is demonstrating improving fine motor coordination of the right hand in comparison to time of initial evaluation. Improved motor coordination of the right hand is also evidenced by patient's low QuickDASH UE Outcome Measure score of 2.27. This suggests increased active incorporation of upper extremity in daily functional tasks. Patient also denied any concerns re: distal UE function or ability to carry-over HEP. Patient also denied a change in UE lifting restrictions by physician. Thus, it is recommended that patient be discharged by OT to [facility] at this time. Home Exercise Program Discharged to current [facility]. Reviewed with Patient/Caregiver Goals Progress Being Made Home Exercise Program Patient/Caregiver Understanding Good - Plan Therapy Recommendations Discharge from Occupational Therapy Occupational Therapy Assessment OT Outpatient Standardized Assessments Start: 07/12/18 13:25 Freq: Status: Active Protocol: Document 08/13/18 11:17 AMS (Rec: 08/13/18 11:35 AMS [email or web address]) Purdue Pegboard Test Date of Test Date of Test 08/13/18 Right Hand Trial One 12 Comments 07/12/18= 8 Left Hand Trial One 11 Comments 07/12/18= 10 Both Hands Trial One 8 Comments 07/12/18= 6 Right + Left + Both Hands Trial One 31 Comments 07/12/18= 24 Assembly Trial One 17 Comments 07/12/18= 14 9-Hole Peg Hand Test Hand Right Date of Test 08/13/18 Therapist Mirian Marvin MSOTR/L Norm For Patients Age/Sex 19.5 +/- 2.3 Comments 08/13/18= 19.4 secs 07/12/18 = 24.06 (slightly less than 2 SD above the mean) Left Date of Test 07/12/18 Therapist Mirian Marvin MSOTR/L Interpretation Within Normal Range Norm For Patients Age/Sex 21.4 +/- 2.7 Comments 07/12/18 = 22.53 seconds (within 1 SD above the mean)
== END 2018-11-17 16:00 | disposition home or self-care (01) ==
LOC: OT 10:30
PROVIDERS: PCP Family Medicine; Visit Provider Physical Medicine & Rehabilitation
DX: I63.9 Cerebral infarction, unspecified (principal)
CPT/HCPCS: 97112; 97165; 97530

== ENCOUNTER → 2018-10-13 07:58 | Outpatient (CLI) | payer MEDICARE, OTHER, SELFPAY ==
[2018-10-13 10:07] LABS: Hemoglobin A1C% w Est Avg Glu 8.7 % (4.0-6.0)
[2018-10-13 10:11] LABS: BUN Creatinine Ratio 31.3 (6-22); Blood Urea Nitrogen 25 mg/dL (7-17); Calcium 9.8 mg/dL (8.4-10.2); Carbon Dioxide 27 mmol/L (22-32); Chloride 101 mmol/L (98-107); Estimated Glomerular Filt Rate > 60.0 mL/min (>60); Glucose 175 mg/dL (80-110); HEMOLYSIS < 15 (0-50); Potassium 4.4 mmol/L (3.4-5.1); Sodium 138 mmol/L (137-145)
== END ==
PROVIDERS: PCP Family Medicine; Visit Provider Family Medicine
DX: E11.9 Type 2 diabetes mellitus without complications (principal)
CPT/HCPCS: 36415; 80048; 83036

== ENCOUNTER → 2018-11-23 09:45 | Outpatient (CLI) | payer MEDICARE, OTHER, SELFPAY ==
[2018-11-23 12:17] LABS: Blood Urea Nitrogen 20 mg/dL (7-17); Carbon Dioxide 30 mmol/L (22-32); Chloride 102 mmol/L (98-107); Cholesterol 115 mg/dL (140-199); Estimated Glomerular Filt Rate > 60.0 mL/min (>60); Glucose 230 mg/dL (80-110); HDL Cholesterol 42 mg/dL (40-60); HEMOLYSIS < 15 (0-50); LDL Cholesterol Calculated 61 mg/dL (<100); Sodium 141 mmol/L (137-145); Triglycerides 59 mg/dL (35-150)
== END ==
PROVIDERS: PCP Family Medicine; Visit Provider Family Medicine
DX: E11.9 Type 2 diabetes mellitus without complications (principal)
CPT/HCPCS: 36415; 80048; 80061; 83036

== ENCOUNTER → 2019-01-04 15:32 | Outpatient (CLI) | payer MEDICARE, OTHER, SELFPAY ==
[2019-01-04 16:11] LABS: Hemoglobin A1C% w Est Avg Glu 8.4 % (4.0-6.0)
== END ==
PROVIDERS: PCP Family Medicine; Visit Provider Family Medicine
DX: E11.9 Type 2 diabetes mellitus without complications (principal)
CPT/HCPCS: 36415; 83036

== ENCOUNTER → 2019-03-15 09:16 | Outpatient (CLI) | payer MEDICARE, OTHER, SELFPAY ==
[2019-03-15 09:59] LABS: BUN Creatinine Ratio 31.3 (6-22); Blood Urea Nitrogen 25 mg/dL (7-17); Carbon Dioxide 29 mmol/L (22-32); Chloride 102 mmol/L (98-107); Estimated Glomerular Filt Rate > 60.0 mL/min (>60); Glucose 199 mg/dL (80-110); HEMOLYSIS < 15 (0-50); Potassium 4.3 mmol/L (3.4-5.1); Sodium 141 mmol/L (137-145)
[2019-03-15 10:16] LABS: Hemoglobin A1C% w Est Avg Glu 8.7 % (4.0-6.0)
== END ==
PROVIDERS: PCP Family Medicine; Visit Provider Family Medicine
DX: E11.9 Type 2 diabetes mellitus without complications (principal)
CPT/HCPCS: 36415; 80048; 83036

== ENCOUNTER → 2019-04-18 11:02 | Outpatient (CLI) | payer MEDICARE, OTHER, SELFPAY ==
[2019-04-18 13:53] LABS: BUN Creatinine Ratio 27.8 (6-22); Blood Urea Nitrogen 25 mg/dL (7-17); Calcium 10.2 mg/dL (8.4-10.2); Carbon Dioxide 25 mmol/L (22-32); Chloride 101 mmol/L (98-107); Estimated Glomerular Filt Rate > 60.0 mL/min (>60); Glucose 218 mg/dL (80-110); HEMOLYSIS < 15 (0-50); Potassium 4.8 mmol/L (3.4-5.1); Sodium 140 mmol/L (137-145)
[2019-04-18 14:54] LABS: Hemoglobin A1C% w Est Avg Glu 8.2 % (4.0-6.0)
== END ==
PROVIDERS: PCP Family Medicine; Visit Provider Family Medicine
DX: E11.9 Type 2 diabetes mellitus without complications (principal)
CPT/HCPCS: 36415; 80048; 83036

== ENCOUNTER → 2019-04-19 10:08 | Outpatient (CLI) | payer MEDICARE, OTHER, SELFPAY ==
--- NOTE | 2019-04-19 10:10 | DI.RAD.S_ITS ---
This blank DEXA report has been sent in error by the PACS system. The correct and complete report will be forthcoming in 1-2 days. Thank you for your patience and understanding. Dictated by: Da Titus M.D. on 04/19/2019 at 10:48 Approved by: Da Titus M.D. on 04/19/2019 at 10:48
--- NOTE | 2019-04-19 10:19 | DI.CT.S_ITS ---
PROCEDURE: CT ANGIO NECK INDICATIONS: Right vertebral artery occlusion TECHNIQUE: After the administration of intravenous contrast, 1.5 mm axial sections acquired from the aortic arch to the [place] of Michele. Maximum intensity projection (MIP) reformats were then performed. COMPARISON: [facility], MR, MR HEAD/BRAIN WO CON, 06/23/2018, 15:44. [facility], CT, CT ANGIO HEAD AND NECK, 06/23/2018, 18:21. FINDINGS: Image quality: Excellent. Carotid system: The great vessels demonstrate a conventional anatomy as they arise from the aortic arch except at the right vertebral artery where the vessel is not clearly patent from its origin into the arterial foramen on the right. At several of the foramen the vessel is entirely unopacified and several areas of slight flow within the vertebral artery can be seen. For example, see series 4 image 92 with the vessel absent and series 4 image 87 with slight eccentric flow within the anterior aspect of the vessel. This presumably represents collateral flow, directed cephalad towards the basilar artery. The origins of the common carotid arteries appear patent. The common carotid arteries demonstrate normal calibers and courses. The bifurcation regions appear normal bilaterally. The internal carotid arteries demonstrate normal caliber and course. Posterior circulation: The origins of the vertebral arteries appear patent. The more superior portions of the vertebral arteries demonstrate normal course and caliber. They join to form a normal appearing basilar artery. Soft tissues: Visualized neck soft tissues demonstrate no suspicious abnormalities. Thyroid gland appears normal where well visualized. Asymmetric right nasal airway stenosis, chronic leftward deviation of the midline nasal septum. The soft tissue thickening in the right nasal airway is a new finding with reference to the study from 06/23/18. Bones: No suspicious bony lesions. Visualized cervical spine appears normally aligned. IMPRESSION: Considering differences in technique the left vertebral artery appears widely patent as was previously the case and the right vertebral artery appears largely occluded with only several small areas of this vessel within the arterial foramen on the right partially opacified by contrast and directed cephalad. Alternatively it is possible that the flow within this right-sided vessel represents retrograde collateral flow from above. The right vertebral artery is seen to be diminutive below the level of the basilar artery, but patent at the foramen magnum. Incidental note is made of new right nasal airway stenosis, associated with chronic leftward deviation of the midline nasal septum. There is septal deviation was previously present 06/23/18 but right nasal airway opacification was not. Any quantitative stenosis measurements were performed using the NASCET criteria. Dictated by: Da Titus M.D. on 04/19/2019 at 14:18 Approved by: Da Titus M.D. on 04/19/2019 at 14:30
== END ==
PROVIDERS: PCP Family Medicine; Visit Provider Family Medicine
DX: I65.01 Occlusion and stenosis of right vertebral artery (principal); J34.89 Other specified disorders of nose and nasal sinuses; J34.2 Deviated nasal septum; I63.9 Cerebral infarction, unspecified; Z78.0 Asymptomatic menopausal state; E11.9 Type 2 diabetes mellitus without complications; Z87.891 Personal history of nicotine dependence
CPT/HCPCS: 70498; 77080; Q9967

== ENCOUNTER → 2019-05-10 11:41 | Outpatient (CLI) | payer MEDICARE, OTHER, SELFPAY ==
--- NOTE | 2019-05-10 | DI.MG.S_ITS ---
BILATERAL DIGITAL SCREENING MAMMOGRAM 3D/2D WITH CAD: 05/10/2019 CLINICAL: Routine screening. Comparison is made to exams dated: 08/07/2016 mammogram, 07/29/2016 mammogram, and 03/18/2013 mammogram - [facility]. There are scattered fibroglandular elements in both breasts. Current study was also evaluated with a Computer Aided Detection (CAD) system. No significant masses, calcifications, or other findings are seen in either breast. There has been no significant interval change. IMPRESSION: NEGATIVE There is no mammographic evidence of malignancy. A 1 year screening mammogram is recommended. This exam was interpreted at Station ID: [id number]. NOTE: For mammograms, a report in lay terms will be sent to the patient. Approximately 15% of breast malignancies will not be visualized mammographically. In the management of a palpable breast mass, a negative mammogram must not discourage biopsy of a clinically suspicious lesion. Electronically Signed By: Turner camarena/bear:05/10/2019 15:53:59 letter sent: Normal Exam ACR BI-RADS Category 1: Negative [id number]
== END ==
PROVIDERS: PCP Family Medicine; Visit Provider Family Medicine
DX: Z12.31 Encounter for screening mammogram for malignant neoplasm of breast (principal)
CPT/HCPCS: 77063; 77067

== ENCOUNTER → 2019-07-25 12:19 | Outpatient (CLI) | payer MEDICARE, OTHER, SELFPAY ==
[2019-07-25 13:39] LABS: BUN Creatinine Ratio 28.9 (6-22); Blood Urea Nitrogen 26 mg/dL (7-17); Calcium 10.2 mg/dL (8.4-10.2); Carbon Dioxide 28 mmol/L (22-32); Chloride 100 mmol/L (98-107); Estimated Glomerular Filt Rate > 60.0 mL/min (>60); Glucose 184 mg/dL (80-110); HEMOLYSIS < 15 (0-50); Potassium 4.3 mmol/L (3.4-5.1); Sodium 138 mmol/L (137-145)
[2019-07-25 13:45] LABS: Hemoglobin A1C% w Est Avg Glu 8.2 % (4.0-6.0)
== END ==
PROVIDERS: PCP Family Medicine; Visit Provider Family Medicine
DX: E11.9 Type 2 diabetes mellitus without complications (principal)
CPT/HCPCS: 36415; 80048; 83036

== ENCOUNTER → 2019-10-25 13:43 | Outpatient (CLI) | payer MEDICARE, OTHER, SELFPAY ==
[2019-10-25 15:01] LABS: Hemoglobin A1C% w Est Avg Glu 8.5 % (4.0-6.0)
[2019-10-25 15:42] LABS: BUN Creatinine Ratio 26.1 (6-22); Blood Urea Nitrogen 23 mg/dL (7-17); Calcium 10.2 mg/dL (8.4-10.2); Carbon Dioxide 28 mmol/L (22-32); Chloride 102 mmol/L (98-107); Estimated Glomerular Filt Rate > 60.0 mL/min (>60); Glucose 229 mg/dL (80-110); HEMOLYSIS < 15 (0-50); Potassium 4.5 mmol/L (3.4-5.1); Sodium 140 mmol/L (137-145)
== END ==
PROVIDERS: PCP Family Medicine; Referring Provider Family Medicine; Visit Provider Family Medicine
DX: E11.9 Type 2 diabetes mellitus without complications (principal)
CPT/HCPCS: 36415; 80048; 83036

== ENCOUNTER → 2020-02-06 10:58 | Outpatient (CLI) | payer MEDICARE, OTHER, SELFPAY ==
[2020-02-06 12:25] LABS: Hemoglobin A1C% w Est Avg Glu 8.3 % (4.0-6.0)
[2020-02-06 12:52] LABS: BUN Creatinine Ratio 27.3 (6-22); Blood Urea Nitrogen 21 mg/dL (7-17); Calcium 9.9 mg/dL (8.4-10.2); Carbon Dioxide 30 mmol/L (22-32); Chloride 100 mmol/L (98-107); Estimated Glomerular Filt Rate > 60.0 mL/min (>60); Glucose 200 mg/dL (80-110); HEMOLYSIS < 15 (0-50); Potassium 4.5 mmol/L (3.4-5.1); Sodium 136 mmol/L (137-145)
== END ==
PROVIDERS: PCP Family Medicine; Referring Provider Family Medicine; Visit Provider Family Medicine
DX: E11.9 Type 2 diabetes mellitus without complications (principal)
CPT/HCPCS: 36415; 80048; 83036

== ENCOUNTER → 2020-03-28 09:44 | Outpatient (CLI) | payer MEDICARE, OTHER, SELFPAY ==
[2020-03-28 11:16] LABS: BUN Creatinine Ratio 27.2 (6-22); Blood Urea Nitrogen 22 mg/dL (7-17); Calcium 9.5 mg/dL (8.4-10.2); Carbon Dioxide 31 mmol/L (22-32); Chloride 102 mmol/L (98-107); Estimated Glomerular Filt Rate > 60.0 mL/min (>60); Glucose 175 mg/dL (80-110); HEMOLYSIS < 15 (0-50); Potassium 4.1 mmol/L (3.4-5.1); Sodium 140 mmol/L (137-145)
== END ==
PROVIDERS: PCP Family Medicine; Referring Provider Family Medicine; Visit Provider Family Medicine
DX: E11.9 Type 2 diabetes mellitus without complications (principal)
CPT/HCPCS: 36415; 80048

== ENCOUNTER → 2020-05-23 08:19 | Outpatient (CLI) | payer MEDICARE, OTHER, SELFPAY ==
[2020-05-23 09:39] LABS: Hemoglobin A1C% w Est Avg Glu 7.9 % (4.0-6.0)
[2020-05-23 09:46] LABS: BUN Creatinine Ratio 32.9 (6-22); Blood Urea Nitrogen 28 mg/dL (7-17); Calcium 9.8 mg/dL (8.4-10.2); Carbon Dioxide 32 mmol/L (22-32); Chloride 101 mmol/L (98-107); Cholesterol 162 mg/dL (140-199); Estimated Glomerular Filt Rate > 60.0 mL/min (>60); Glucose 199 mg/dL (80-110); HDL Cholesterol 53 mg/dL (40-60); HEMOLYSIS < 15 (0-50); LDL Cholesterol Calculated 90 mg/dL (<100); Potassium 5.1 mmol/L (3.4-5.1); Sodium 137 mmol/L (137-145); Triglycerides 93 mg/dL (35-150)
== END ==
PROVIDERS: PCP Family Medicine; Referring Provider Family Medicine; Visit Provider Family Medicine
DX: E11.9 Type 2 diabetes mellitus without complications (principal); E78.2 Mixed hyperlipidemia
CPT/HCPCS: 36415; 80048; 80061; 83036

== ENCOUNTER → 2020-09-07 09:24 | Outpatient (CLI) | payer MEDICARE, OTHER, SELFPAY ==
[2020-09-07 10:39] LABS: Alanine Aminotransferase 20 IU/L (<35); Albumin Globulin Ratio 1.5 (1.0-2.8); Alkaline Phosphatase 67 U/L (38-126); Aspartate Aminotransferase 19 IU/L (14-36); BUN Creatinine Ratio 28.2 (6-22); Bilirubin Total 0.5 mg/dL (0.2-1.3); Blood Urea Nitrogen 22 mg/dL (7-17); Calcium 9.7 mg/dL (8.4-10.2); Carbon Dioxide 26 mmol/L (22-32); Chloride 102 mmol/L (98-107); Cholesterol 144 mg/dL (140-199); Estimated Glomerular Filt Rate > 60.0 mL/min (>60); Globulin 2.6 g/dL (1.7-4.1); Glucose 222 mg/dL (80-110); HDL Cholesterol 49 mg/dL (40-60); HEMOLYSIS < 15 (0-50); LDL Cholesterol Calculated 73 mg/dL (<100); Potassium 4.4 mmol/L (3.4-5.1); Sodium 136 mmol/L (137-145); Total Protein 6.6 g/dL (6.3-8.2); Triglycerides 111 mg/dL (35-150)
== END ==
PROVIDERS: PCP Family Medicine; Referring Provider Family Medicine; Visit Provider Family Medicine
DX: E11.9 Type 2 diabetes mellitus without complications (principal); I63.9 Cerebral infarction, unspecified
CPT/HCPCS: 36415; 80053; 80061

== ENCOUNTER → 2020-09-11 10:07 | Outpatient (CLI) | payer MEDICARE, OTHER, SELFPAY ==
--- NOTE | 2020-09-11 10:09 | DI.RAD.S_ITS ---
PROCEDURE: XR KNEE LT 3V INDICATIONS: LEFT KNEE PAIN TECHNIQUE: 3 views of the knee were acquired. COMPARISON: None. FINDINGS: Bones: No fractures or dislocations. No suspicious bony lesions. Moderate narrowing of the medial femoral tibial joint and tricompartmental periarticular osteophyte formation. Soft tissues: Small joint effusion. No suspicious soft tissue calcifications. Posterior soft tissue calcifications, largest measuring roughly 1.3 cm. IMPRESSION: 1. Tricompartmental knee joint degeneration, most notably involving the medial femorotibial joint. 2. Posterior soft tissue calcifications. Dictated by: Mike Santacruz [facility] Interpreted: Bing Thakur MD on 09/11/2020 at 10:31 Approved by: Bing Thakur M.D. on 09/11/2020 at 11:57
== END ==
PROVIDERS: PCP Family Medicine; Referring Provider Family Medicine; Visit Provider Family Medicine
DX: M25.562 Pain in left knee (principal); M17.12 Unilateral primary osteoarthritis, left knee
CPT/HCPCS: 73562

== ENCOUNTER → 2020-10-03 15:04 | Outpatient (CLI) | payer MEDICARE, OTHER, SELFPAY ==
--- NOTE | 2020-10-03 16:12 | DIET.PN ---
Diabetes Intake: Initial Assessment Assess: Ms. Jernigan is a 69 yof referred for long standing hx of type 2 diabetes. She has had education in the past, but has not been very compliant with lifestyle modifications. She was recently placed on insulin glargine which she has not started yet as she was waiting for insulin instruction. She admits to frequent snacking and would often have ice cream and desserts each night. Labs: Per pt report: A1c: 7.9 Meds: lantus 10 u pm; metformin 1000mg BID; actos 15mg; glimepiride 2mg pm Diet: per 24 hr recall: B: eggs, ramos, apple sauce; syriac yogurt w/ granola and berries L: garden salad w/ chicken; tuna sandwich; soup D: chicken/pork/fish, veg, starch; fish, slaw, rice Sn: apple; trailmix Wt: 195lb Ht: 65in BMI: 32.4 BP: DX: Altered nutrition related laboratory values related to impaired glucose metabolism, lack of previous exposure to nutrition information as evidenced by pt report, diagnosis of diabetes, previous diet high in refined carbohydrates. Intervention: 1. Completed intake assessment. Discussed barriers to care. 2. Discussed pathophysiology of diabetes. Reviewed A1c and its correlation to blood glucose numbers. Discussed recommended BG ranges. 3. Discussed importance of self-monitoring, how often, and when to check. 4. Reviewed hyper/hypoglycemia and treatment. 5. Reviewed safe disposal of equipment (strip/lancets/insulin needles). 6. Created SMART goals for pt self-care and success. 7. Discussed program curriculum outline and class needs based on individual goals. SMART Goals: 1. Pt goal weight of 170 in the next 3 mo through dietary improvements including portion control, carb counting, and regular daily exercise. Monitor/Evaluate: Pt will attend full DSME program. Basic Nutrition class scheduled for Oct 09.
== END ==
PROVIDERS: PCP Family Medicine; Referring Provider Family Medicine; Visit Provider Family Medicine
DX: E11.9 Type 2 diabetes mellitus without complications (principal); Z79.84 Long term (current) use of oral hypoglycemic drugs
CPT/HCPCS: G0108

== ENCOUNTER → 2020-10-09 10:05 | Outpatient (CLI) | payer MEDICARE, OTHER, SELFPAY ==
--- NOTE | 2020-10-09 11:22 | DIET.PN ---
Diabetes: Healthy Eating 1 Intervention: ? Discussed pathophysiology of diabetes and impact of nutrition/diet on blood sugar control.? Discussed fed versus non-fed state.?? ? Reviewed importance of Balance, Variety, and Moderation. ? Discussed the effect of carbohydrates/protein/fat on blood sugar control.? ? Stressed importance of consistent carbohydrate intake at each meal and provided instructions for recommended servings/portions of carbohydrates/protein per meal. Provided educational material. ? Reviewed carbohydrate counting and measuring carbohydrate content via serving sizes and reading nutrition labels.? Provided handouts.?? ? Discussed the difference between simple versus complex carbohydrates and the effect of fiber on blood sugar control.? Discussed various methods to increase fiber content in diet. ? Discussed the plate method for creating more carbohydrate conscious balanced meals. ? Stressed importance of meal timing and not going >4-5 hours between meals. Encouraged adding protein to evening snack to support glucose control overnight. ? Discussed importance of making dietary habits part of lifestyle change.
== END ==
PROVIDERS: PCP Family Medicine; Referring Provider Family Medicine; Visit Provider Family Medicine
DX: E11.9 Type 2 diabetes mellitus without complications (principal); Z71.3 Dietary counseling and surveillance
CPT/HCPCS: G0109

== ENCOUNTER → 2020-10-16 09:58 | Outpatient (CLI) | payer MEDICARE, OTHER, SELFPAY ==
--- NOTE | 2020-10-16 11:52 | DIET.PN ---
Diabetes: Healthy Eating 2 Intervention: Fats effects on glucose, weight, heart disease, cholesterol Sat Vs Unsat Protein- animal and plant based options Low, med, high fat meats Sugar substitutes Sodium Health claims Grocery shopping guidelines Eating away from home Alcohol Sick day guidelines Ketone Testing
== END ==
PROVIDERS: PCP Family Medicine; Referring Provider Family Medicine; Visit Provider Family Medicine
DX: E11.9 Type 2 diabetes mellitus without complications (principal); Z71.3 Dietary counseling and surveillance
CPT/HCPCS: G0109

== ENCOUNTER → 2020-10-23 10:02 | Outpatient (CLI) | payer MEDICARE, OTHER, SELFPAY ==
--- NOTE | 2020-10-23 13:09 | DIET.PN ---
Diabetes Physiology: Intervention 1. Diabetes physiology 2. Detecting and treatment of acute and chronic complications 3. Diagnosis of and difference in types of diabetes 4. Self-monitoring and pattern management a. Demonstrate glucometer and control testing b. Explain BG results and action to take when out of range. 5. Foot , eye, dental care 6. Medications a. Oral medication classification b. Injectable c. Insulin i. Injection protocol ii. Other delivery methods
== END ==
PROVIDERS: PCP Family Medicine; Referring Provider Family Medicine; Visit Provider Family Medicine
DX: E11.9 Type 2 diabetes mellitus without complications (principal); Z71.3 Dietary counseling and surveillance
CPT/HCPCS: G0109

== ENCOUNTER → 2020-11-08 09:03 | Outpatient (CLI) | payer MEDICARE, OTHER, SELFPAY ==
--- NOTE | 2020-11-08 09:55 | DIET.PN ---
DIABETES Nutrition Initial Assessment:? ASSESS:?? Ms. Jernigan is a 69 yof?referred for type 2 diabetes seen as part of DSME program. She has been monitoring her BG 2-3 times per day. Feels symptomatic at 90-100. Still having a hard time with snacking choices. She has been working on drinking more water. ??? LABS: Per pt report:? A1c: 7.9 FB-180 ? MEDS:?? no change ? DIET: Per 24-hour recall:? B: fruit; cereal w/ khmer yogurt; eggs w/ apple sauce L: salad w/ chicken; chicken noodle soup D: chicken/pork/fish, veg, starch; fish Sn: apples w/ pb, cuties, mixed nuts Eating Out: rarely Changes in Appetite: less hungry, less sugar cravings Nutrition Supplements: vitamin D, B12 ? Weight: 196lb Height: 65in BMI: ? 32.4 ? Exercise:? has not been able to walk as much r/t knee issues NUTRITION DX 1. Altered Nutrition related labs related to impaired glucose metabolism, lack of previous exposure to accurate nutrition information as evidenced by pt report, dx of diabetes, previous diet high in refined carbohydrates.? INTERVENTION(s): 1. Reviewed pathophysiology of diabetes and impact of nutrition/diet on blood sugar control.? Discussed fed versus non-fed state.?? 2. Discussed the effect of carbohydrates/protein/fat on blood sugar control.? Stressed importance of consistent carbohydrate intake at each meal and provided instructions for recommended servings/portions of carbohydrates/protein per meal. Provided pt with educational material. 3. Reviewed carbohydrate counting and measuring carbohydrate content via serving sizes and reading nutrition labels.? Provided handouts.?? 4. Discussed the difference between simple versus complex carbohydrates and the effect of fiber on blood sugar control.? Discussed various methods to increase fiber content in diet. 5. Stressed importance of meal timing and not going >4-5 hours between meals. Encouraged adding protein to evening snack to support glucose control overnight. Patient agreeable. 6. Provided snacking under 200 gerson list. 7. Discussed healthy weight loss goals of 1-2lbs per week through diet and exercise.? Pt agreeable to walking at least 30 minutes daily. 8. Recommend monitoring fasting and alternating 2 hr PP mealtime glucose. MONITOR/EVALUATE: Anticipate good compliance.? Nutrition follow-up scheduled for 1 month.
== END ==
PROVIDERS: PCP Family Medicine; Referring Provider Family Medicine; Visit Provider Family Medicine
DX: E11.9 Type 2 diabetes mellitus without complications (principal)
CPT/HCPCS: G0109

== ENCOUNTER → 2021-04-17 09:38 | Outpatient (CLI) | payer MEDICARE, OTHER, SELFPAY ==
[2021-04-17 10:06] LABS: Hemoglobin A1C% w Est Avg Glu 7.7 % (4.0-6.0)
[2021-04-17 10:28] LABS: Alanine Aminotransferase 15 IU/L (<35); Albumin 3.8 g/dL (3.5-5.0); Albumin Globulin Ratio 1.5 (1.0-2.8); Alkaline Phosphatase 58 U/L (38-126); Aspartate Aminotransferase 17 IU/L (14-36); Bilirubin Total 0.4 mg/dL (0.2-1.3); Blood Urea Nitrogen 21 mg/dL (7-17); Calcium 9.8 mg/dL (8.4-10.2); Carbon Dioxide 30 mmol/L (22-32); Chloride 103 mmol/L (98-107); Estimated Glomerular Filt Rate > 60.0 mL/min (>60); Globulin 2.6 g/dL (1.7-4.1); Glucose 107 mg/dL (80-110); HEMOLYSIS < 15 (0-50); Potassium 4.6 mmol/L (3.4-5.1); Sodium 141 mmol/L (137-145); Total Protein 6.4 g/dL (6.3-8.2)
== END ==
PROVIDERS: PCP Family Medicine; Referring Provider Family Medicine; Visit Provider Family Medicine
DX: E11.9 Type 2 diabetes mellitus without complications (principal); I10 Essential (primary) hypertension
CPT/HCPCS: 36415; 80053; 83036

== ENCOUNTER → 2021-04-30 12:09 | Outpatient (CLI) | payer MEDICARE, OTHER, SELFPAY ==
--- NOTE | 2021-04-30 12:10 | DI.US.S_ITS ---
PROCEDURE: US CAROTID DOPPLER BI INDICATIONS: HISTORY CVA TECHNIQUE: Color and pulse Doppler interrogation was performed of both carotid systems, with image documentation and velocity measurements. COMPARISON: [facility], CT, CT ANGIO NECK, 04/19/2019, 10:36. CT, CT ANGIO HEAD AND NECK, 06/23/2018, 18:21. MR, MR HEAD/BRAIN WO CON, 06/23/2018, 15:44. FINDINGS: Stenosis calculations are based on SRU (Society of Radiologists in Ultrasound) criteria. Right side: Brachial blood pressure: 124/72 mm Hg. Common carotid artery peak systolic velocity: 80 cm/sec. Internal carotid artery peak systolic velocity: 63 cm/sec. Internal carotid artery end diastolic velocity: 21 cm/sec. External carotid artery peak systolic velocity: 88 cm/sec. ICA/CCA peak systolic ratio: 0.8 . Gibson scale imaging description: Minimal plaque at the bifurcation Percent internal carotid artery stenosis: Less than 50% . Vertebral artery: Flow direction is antegrade. Left side: Brachial blood pressure: 127/69 mm Hg. Common carotid artery peak systolic velocity: 110 cm/sec. Internal carotid artery peak systolic velocity: 66 cm/sec. Internal carotid artery end diastolic velocity: 18 cm/sec. External carotid artery peak systolic velocity: 92 cm/sec. ICA/CCA peak systolic ratio: 0.6 . Gibson scale imaging description: Minimal to mild plaque at the bifurcation. Percent internal carotid artery stenosis: Less than 50% . Vertebral artery: Flow direction is antegrade. IMPRESSION: Less than 50% stenosis of the internal carotid arteries bilaterally. Dictated by: Bing Thakur M.D. on 04/30/2021 at 15:16 Approved by: Bing Thakur M.D. on 04/30/2021 at 15:18
== END ==
PROVIDERS: PCP Family Medicine; Referring Provider Family Medicine; Visit Provider Family Medicine
DX: I65.23 Occlusion and stenosis of bilateral carotid arteries (principal); E11.9 Type 2 diabetes mellitus without complications; I10 Essential (primary) hypertension; E78.2 Mixed hyperlipidemia; Z86.73 Personal history of transient ischemic attack (TIA), and cerebral infarction without residual deficits
CPT/HCPCS: 93880

== ENCOUNTER → 2021-05-20 11:07 | Outpatient (CLI) | payer MEDICARE, OTHER, SELFPAY ==
--- NOTE | 2021-05-20 | DI.MG.S_ITS ---
BILATERAL DIGITAL SCREENING MAMMOGRAM 3D/2D WITH CAD: 05/20/2021 CLINICAL: Routine screening. Comparison is made to exams dated: 05/10/2019 mammogram, 08/07/2016 mammogram, and 07/29/2016 mammogram - . There are scattered fibroglandular elements in both breasts. Current study was also evaluated with a Computer Aided Detection (CAD) system. No significant masses, calcifications, or other findings are seen in either breast. There has been no significant interval change. IMPRESSION: NEGATIVE There is no mammographic evidence of malignancy. A 1 year screening mammogram is recommended. This exam was interpreted at Station ID: [id number]. NOTE: For mammograms, a report in lay terms will be sent to the patient. Approximately 15% of breast malignancies will not be visualized mammographically. In the management of a palpable breast mass, a negative mammogram must not discourage biopsy of a clinically suspicious lesion. Electronically Signed By: Brannon Patterson acr/bear:05/22/2021 08:58:59 letter sent: Normal Exam ACR BI-RADS Category 1: Negative 3341F
== END ==
PROVIDERS: PCP Family Medicine; Referring Provider Family Medicine; Visit Provider Family Medicine
DX: Z12.31 Encounter for screening mammogram for malignant neoplasm of breast (principal)
CPT/HCPCS: 77063; 77067

== ENCOUNTER → 2021-09-18 09:40 | Outpatient (CLI) | payer MEDICARE, OTHER, SELFPAY ==
[2021-09-18 10:34] LABS: Hemoglobin A1C% w Est Avg Glu 10.9 % (4.0-6.0)
[2021-09-18 11:01] LABS: Alanine Aminotransferase 18 IU/L (<35); Albumin 4.1 g/dL (3.5-5.0); Albumin Globulin Ratio 1.6 (1.0-2.8); Alkaline Phosphatase 62 U/L (38-126); Aspartate Aminotransferase 16 IU/L (14-36); BUN Creatinine Ratio 27.6 (6-22); Bilirubin Total 0.6 mg/dL (0.2-1.3); Blood Urea Nitrogen 24 mg/dL (7-17); Calcium 9.5 mg/dL (8.4-10.2); Carbon Dioxide 29 mmol/L (22-32); Chloride 101 mmol/L (98-107); Estimated Glomerular Filt Rate > 60.0 mL/min (>60); Globulin 2.6 g/dL (1.7-4.1); Glucose 249 mg/dL (80-110); HEMOLYSIS < 15 (0-50); Potassium 4.5 mmol/L (3.4-5.1); Sodium 138 mmol/L (137-145); Total Protein 6.7 g/dL (6.3-8.2)
== END ==
PROVIDERS: PCP Family Medicine; Referring Provider Family Medicine; Visit Provider Family Medicine
DX: E11.9 Type 2 diabetes mellitus without complications (principal); E78.2 Mixed hyperlipidemia; Z00.00 Encounter for general adult medical examination without abnormal findings
CPT/HCPCS: 36415; 80053; 83036

== ENCOUNTER → 2021-11-13 10:53 | Outpatient (CLI) | payer MEDICARE, OTHER, SELFPAY ==
--- NOTE | 2021-11-14 17:45 | DIAB.MNT ---
Initial Diabetes Medical Nutrition Therapy Assessment Name: Kelly Jernigan Date: 11/13/21 Time: 5637-5747p Dx: Type II Diabetes Provider: Caleb Preferred Learning Style: doing, watching, listening Violette presents today for initial visit. Had completed DSME program with previous [facility] in 2020. States she feels she needs more support in nutrition and physical activity. Reports big jump in HgA1c. Attributes this to her eating during a trip to [place] and during a camp trip and to reduction in physical activity. Diet recall for usual intake indicates adequate carb intake. Would like to keep a food journal for review in visits. Sees blind eyeletter and dentist regularly. New labs planned for this week. Feels stress about getting BG down. Diet Recall: 8-9a: egg, toast or yogurt with granola and berries (15-30g CHO) 1-2p: half sandwich ; soup 6-7p: pro, veggie, salad, 1 sm potato or 1/2-3/4 c rice, no pasta 9-10p: apple *3a sometimes snack: cheerios with milk Beverages: water x 3-4c, diet soda Anthropometrics: Ht: 65 Wt: 185-192# reported Physical Activity: No program. Tries to walk when boating. Had a gym membership but leaving on trips is a barrier. Likes going to the pool. Self-Monitoring Blood Glucose: No BG for review today. Diabetes Medications: Metformin 1000mg BID Pioglitizone 15mg Levemir 16u Pertinent Labs: 10.9% 09/2021 HgA1c, up from 7.7% 04/2021 Past Medical History: (Last Reviewed 09/25/21 @ 09:11 by Gonzalez Ellis DO) CVA (cerebral vascular accident) Diabetes Hyperlipidemia Hypertension No pertinent past surgical history Well adult exam Well adult exam Nutrition Rx: Carbohydrates: Meal:30-45g Snack:15-30g Nutrition Diagnosis: - Intervention: This participant was very receptive. Provided appropriate educational handouts. Discussed the following topics: Completed intake assessment. Discussed barriers to care. HgA1c, its correlation to blood glucose numbers Importance of self-monitoring, how often, and when to check. Suggested checking at different times to evaluate meals Recommended servings for carbohydrates at meals and snacks Role of physical activity and following guidelines for safety Created SMART goals for patient self-care and success. Goals: Track food check BG 1-2 x per day and log Try swim class Follow-up: SONIA RICO follow-up in 3-4 weeks Cecily Solorio RDN, [facility] Certified Diabetes Care and Programming Coordinator P: [phone] Thank you for this referral
== END ==
PROVIDERS: PCP Family Medicine; Referring Provider Family Medicine; Visit Provider Family Medicine
DX: E11.9 Type 2 diabetes mellitus without complications (principal); Z79.84 Long term (current) use of oral hypoglycemic drugs; Z79.4 Long term (current) use of insulin; Z71.3 Dietary counseling and surveillance
CPT/HCPCS: 97802

== ENCOUNTER → 2021-11-20 08:10 | Outpatient (CLI) | payer MEDICARE, OTHER, SELFPAY ==
[2021-11-20 09:22] LABS: Hemoglobin A1C% w Est Avg Glu 9.9 % (4.0-6.0)
[2021-11-20 09:32] LABS: Alanine Aminotransferase 15 IU/L (<35); Albumin 4.1 g/dL (3.5-5.0); Albumin Globulin Ratio 1.4 (1.0-2.8); Alkaline Phosphatase 56 U/L (38-126); Aspartate Aminotransferase 17 IU/L (14-36); BUN Creatinine Ratio 28.3 (6-22); Bilirubin Total 0.7 mg/dL (0.2-1.3); Blood Urea Nitrogen 26 mg/dL (7-17); Calcium 9.1 mg/dL (8.4-10.2); Carbon Dioxide 27 mmol/L (22-32); Chloride 103 mmol/L (98-107); Estimated Glomerular Filt Rate > 60 mL/min (>60); Glucose 184 mg/dL (80-110); HEMOLYSIS < 15 (0-50); Potassium 4.4 mmol/L (3.4-5.1); Sodium 138 mmol/L (137-145); Total Protein 7.1 g/dL (6.3-8.2)
== END ==
PROVIDERS: PCP Family Medicine; Referring Provider Family Medicine; Visit Provider Family Medicine
DX: E11.9 Type 2 diabetes mellitus without complications (principal); E78.2 Mixed hyperlipidemia; I10 Essential (primary) hypertension
CPT/HCPCS: 36415; 80053; 83036

== ENCOUNTER → 2022-03-25 07:49 | Outpatient (CLI) | payer MEDICARE, OTHER, SELFPAY ==
[2022-03-25 09:23] LABS: Hemoglobin A1C% w Est Avg Glu 9.7 % (4.0-6.0)
[2022-03-25 09:26] LABS: Creatinine Urine Random 70.1 mg/dL
[2022-03-25 09:28] LABS: Alanine Aminotransferase 14 IU/L (<35); Albumin 3.9 g/dL (3.5-5.0); Albumin Globulin Ratio 1.3 (1.0-2.8); Alkaline Phosphatase 59 U/L (38-126); Aspartate Aminotransferase 15 IU/L (14-36); Bilirubin Total 0.5 mg/dL (0.2-1.3); Blood Urea Nitrogen 20 mg/dL (7-17); Calcium 9.5 mg/dL (8.4-10.2); Carbon Dioxide 31 mmol/L (22-32); Chloride 102 mmol/L (98-107); Cholesterol 165 mg/dL (140-199); Estimated Glomerular Filt Rate > 60 mL/min (>60); Globulin 3.1 g/dL (1.7-4.1); Glucose 186 mg/dL (80-110); HDL Cholesterol 46 mg/dL (40-60); HEMOLYSIS < 15 (0-50); LDL Cholesterol Calculated 99 mg/dL (<100); Potassium 4.4 mmol/L (3.4-5.1); Sodium 138 mmol/L (137-145); Triglycerides 100 mg/dL (35-150)
[2022-03-25 09:28] LABS: Microalbumi Creatinin Ratio Ur 9.9 ug/mg CR (<30); Microalbumin Urine Random 0.7 mg/dL (0-1.6)
[2022-03-25 10:40] LABS: TSH w/ Reflex to FT4 1.44 uIU/mL (0.47-4.68)
== END ==
PROVIDERS: PCP Family Medicine; Referring Provider Family Medicine; Visit Provider Family Medicine
DX: E11.9 Type 2 diabetes mellitus without complications (principal); E78.2 Mixed hyperlipidemia; I10 Essential (primary) hypertension
CPT/HCPCS: 36415; 80053; 80061; 82043; 82570; 83036; 84443

== ENCOUNTER → 2022-05-21 08:36 | Outpatient (CLI) | payer MEDICARE, OTHER, SELFPAY ==
[2022-05-21 10:11] LABS: Hemoglobin A1C% w Est Avg Glu 10.4 % (4.0-6.0)
[2022-05-21 10:19] LABS: Alanine Aminotransferase 18 IU/L (<35); Albumin Globulin Ratio 1.5 (1.0-2.8); Alkaline Phosphatase 60 U/L (38-126); Aspartate Aminotransferase 15 IU/L (14-36); BUN Creatinine Ratio 25.9 (6-22); Bilirubin Total 0.5 mg/dL (0.2-1.3); Blood Urea Nitrogen 22 mg/dL (7-17); Carbon Dioxide 30 mmol/L (22-32); Chloride 101 mmol/L (98-107); Estimated Glomerular Filt Rate > 60 mL/min (>60); Globulin 2.7 g/dL (1.7-4.1); Glucose 141 mg/dL (80-110); HEMOLYSIS < 15 (0-50); Potassium 4.5 mmol/L (3.4-5.1); Sodium 139 mmol/L (137-145); Total Protein 6.7 g/dL (6.3-8.2)
--- NOTE | 2022-05-22 16:16 | DIAB.FU ---
Follow-up Diabetes Education Assessment Name: Kelly Jernigan Date: 05/22/22 Time: 148-950g Dx: Type II Diabetes Provider: Caleb Oakes presents for DM follow-up. Last visit was in November. Due to vacations and missed appt, there has been 6 months since our last visit. Completed labs prior to our visit (HgA1c not yet available during out visit). Has a goal of increasing HS insulin to 30u slowly. Currently taking 28u and plans to increase to 30 by the end of the week. States she did not start Trulicity due to cost. Hoping cost will be better in July. States she thinks her insulin makes her hyper at night. Also endorses some reflux with insulin. Discussed symptoms and how GI upset is often more connected to Metformin. She really feels it is from the insulin. Taking insulin earlier in the evening to mitigate feeling hyper before bed. Endorses some difficulty with seelp r/t hip pain and frequent urination. Tracked food intake for a couple weeks in April. Endorses having protein and veggies at most meals with 0-1c of CHO. Also reports low water intake, often 12-32oz per day. Physical Activity: No program. Joined a gym. Self-Monitoring Blood Glucose: None recently. Diabetes Medications: Metformin 1000mg BID Pioglitizone 15mg Levemir 30u Pertinent Labs: 03/2022 Hga1c 9.7% Past Medical History: (Last Reviewed 03/27/22 @ 14:18 by Gonzalez Ellis DO) CVA (cerebral vascular accident) Diabetes GERD (gastroesophageal reflux disease) Hyperlipidemia Hypertension Well adult exam Well adult exam Intervention: This participant was very receptive. Provided appropriate educational handouts. Discussed the following topics: Medication management, titration of insulin Review of general nutrition recommendations and current intake Physical activity plan and impact on blood sugars Hydration recs and impact on BG Created SMART goals for patient self-care and success. Goals: Track food- met check BG 1-2 x per day and log- in progress Try swim class- not met gym 2-3x per week- new check BG 1-2x per day- new Aim for 48oz water daily (2 of your water bottles)- new Follow-up: Kelly would like to follow-up in July. During our visit we did schedule this appointment in Jul. After our appointment, this RD reviewed her HgA1c which has increased since last visit. Will offer her a sooner appointment. Additionally, she has a PCP visit scheduled for 05/23/22. Cecily Solorio RDN, [facility] Certified Diabetes Care and Drilling Machine Runner P: [phone] Thank you for this referral
== END ==
PROVIDERS: PCP Family Medicine; Referring Provider Family Medicine; Visit Provider Family Medicine
DX: E11.9 Type 2 diabetes mellitus without complications (principal); Z79.4 Long term (current) use of insulin; Z79.84 Long term (current) use of oral hypoglycemic drugs; Z71.3 Dietary counseling and surveillance
CPT/HCPCS: 36415; 80053; 83036; G0108

== ENCOUNTER → 2022-05-22 09:10 | Outpatient (CLI) | payer MEDICARE, OTHER, SELFPAY ==
--- NOTE | 2022-05-22 09:12 | DI.MG.S_ITS ---
BILATERAL DIGITAL SCREENING MAMMOGRAM 3D/2D WITH CAD: 05/22/2022 CLINICAL: Routine screening. Comparison is made to exams dated: 05/20/2021 mammogram, 05/10/2019 mammogram, and 07/29/2016 mammogram - . There are scattered areas of fibroglandular density in both breasts (category b / 25%-50% glandular tissue). Current study was also evaluated with a Computer Aided Detection (CAD) system. No significant masses, calcifications, or other findings are seen in either breast. There has been no significant interval change. IMPRESSION: NEGATIVE There is no mammographic evidence of malignancy. A 1 year screening mammogram is recommended. Based on the Tyrer Cuzick model (a risk assessment model) the patient's lifetime risk is 3.6% and her 10 year risk is 2.9%. According to the ACR, ACS, and NCCN guidelines, an annual breast MRI exam along with mammogram is recommended if the patient's lifetime risk is 20% or greater. This exam was interpreted at Station ID: [id number]. NOTE: For mammograms, a report in lay terms will be sent to the patient. Approximately 15% of breast malignancies will not be visualized mammographically. In the management of a palpable breast mass, a negative mammogram must not discourage biopsy of a clinically suspicious lesion. Electronically Signed By: Joseph rosales/bear:05/22/2022 14:31:35 letter sent: Normal Exam ACR BI-RADS Category 1: Negative 3341F
== END ==
PROVIDERS: PCP Family Medicine; Referring Provider Family Medicine; Visit Provider Family Medicine
DX: Z12.31 Encounter for screening mammogram for malignant neoplasm of breast (principal)
CPT/HCPCS: 77063; 77067

== ENCOUNTER → 2022-07-16 09:06 | Outpatient (CLI) | payer MEDICARE, OTHER, SELFPAY ==
--- NOTE | 2022-07-24 15:54 | DIAB.MNTFU ---
Follow-up Diabetes Medical Nutrition Therapy Assessment Name: Kelly Jernigan Date: 07/16/22 Time: 915-10a Dx: Type II Diabetes Violette presents for follow-up visit. States she has not been able to get novolog through pharmacy. States she is unclear why this is. She leaves for another trip tomorrow and will be gone for 3 weeks. Has concerns for diet while on vacation. Has been working on reduced rice portions, readings food labels for carbohydrates, though aiming for 19-27g, which is quite specific. States she feels she is having some SE from Metformin: occasional dizziness q few days (though admits this may be from low water intake), N/v q 1-2 months (which seems unlikely r/t to Metformin given how infrequent. Sleep is improving but still a challenge with back arthritis pain. Diet Recall: -9a: 1/2c granola with yogurt (35g CHO) OR eng muffin with avocado and egg (30g CHO) 1-2p: sandwich on skinny bread /- cup of chx noodle soup OR salad with pro 3-4p: nuts or half cup trail mix 6-7p: chicken with 1/2-3/4c boxed flavored rice OR ham, potatoes, veggies OR fish with coleslaw and veggies 9-10p: apple and PB Beverages: milk, water, coffee, diet soda Anthropometrics: Ht: 65 Wt: 187# (05/2022) Physical Activity: Started at the gym 2x per week. States she is enjoying this and feels good working out. Also walking her dog daily. Self-Monitoring Blood Glucose: FBG over the last couple months are mostly in goal or at least <140. Higher FBG r/t interrupted sleep. In review of log book, difficult to determine trends but having some elevations after dinner 243, 259 mg/dl, indicating need for mealtime insulin. This seems especially needed given diet recall of lower carb intake at dinner per report. Date Pre Post Pre Post Pre Post HS 06/26 134 07/03 115 07/04 126 07/13 212 07/14 215 146 07/15 213 07/16 133 Diabetes Medications: Metformin 1000mg BID Pioglitizone 15mg Levemir 30u Aspart 5u BID Pertinent Labs: HgA1c: 05/2022: 10.4% 03/2022: 9.7% 11/2021: 9.9% 09/2021: 10.9% Past Medical History: (Last Updated 05/23/22 @ 10:36 by Gonzalez Ellis DO) CVA (cerebral vascular accident) Diabetes GERD (gastroesophageal reflux disease) Hyperlipidemia Hypertension Insomnia Well adult exam Well adult exam Nutrition Rx: Carbohydrates: Meal:30-45g Snack:15-30g Nutrition Diagnosis: Nutrition knowledge deficit r/t pt unclear of how much carb is rec and how to read food label aeb pt report Self monitoring deficit r/t limited pc readings aeb log book Intervention: This participant was very receptive. Provided appropriate educational handouts. Discussed the following topics: Blood sugar review and trends. Impact of food and need for additional insulin coverage at meals. label readings Car recs and carb counting review Physical activity plan and progress SMBG for meals Checking BG when having symptoms Common SE with medications Problem solving for medication with pharmacy Created SMART goals for patient self-care and success. Goals: gym 2-3x per week- met check BG 1-2x per day- met Aim for 48oz water daily (2 of your water bottles)- in progress When feeling dizzy, check BG- new Call pharmacy to determine issue with insulin (insurance coverage? insulin preferences?)- new Check some pc readings- new Follow-up: SONIA RICO follow-up in September per pt request since she will be gone for 3 weeks. Some concern for progress in diabetes care with how much time requested between appts. Will reconsider appt schedule next visit. Cecily Solorio RDN, [facility] Certified Diabetes Care and Locker Operator P: [phone] Thank you for this referral
== END ==
PROVIDERS: PCP Family Medicine; Referring Provider Family Medicine; Visit Provider Family Medicine
DX: E11.9 Type 2 diabetes mellitus without complications (principal); Z79.84 Long term (current) use of oral hypoglycemic drugs; Z79.4 Long term (current) use of insulin; Z71.3 Dietary counseling and surveillance
CPT/HCPCS: 97803

== ENCOUNTER → 2022-08-12 08:10 | Outpatient (CLI) | payer MEDICARE, OTHER, SELFPAY ==
[2022-08-12 09:58] LABS: Hemoglobin A1C% w Est Avg Glu 9.3 % (4.0-6.0)
[2022-08-12 10:06] LABS: Alanine Aminotransferase 19 IU/L (<35); Albumin 3.7 g/dL (3.5-5.0); Albumin Globulin Ratio 1.4 (1.0-2.8); Alkaline Phosphatase 56 U/L (38-126); Aspartate Aminotransferase 15 IU/L (14-36); BUN Creatinine Ratio 27.3 (6-22); Bilirubin Total 0.6 mg/dL (0.2-1.3); Blood Urea Nitrogen 24 mg/dL (7-17); Calcium 9.2 mg/dL (8.4-10.2); Carbon Dioxide 29 mmol/L (22-32); Chloride 102 mmol/L (98-107); Cholesterol 123 mg/dL (140-199); Estimated Glomerular Filt Rate > 60 mL/min (>60); Globulin 2.7 g/dL (1.7-4.1); Glucose 95 mg/dL (80-110); HDL Cholesterol 53 mg/dL (40-60); HEMOLYSIS < 15 (0-50); LDL Cholesterol Calculated 55 mg/dL (<100); Potassium 4.3 mmol/L (3.4-5.1); Sodium 139 mmol/L (137-145); Total Protein 6.4 g/dL (6.3-8.2); Triglycerides 73 mg/dL (35-150)
[2022-08-12 10:46] LABS: Creatinine Urine Random 83.3 mg/dL
[2022-08-12 10:47] LABS: Microalbumin Urine Random < 0.6 mg/dL (0-1.6)
== END ==
PROVIDERS: PCP Family Medicine; Referring Provider Family Medicine; Visit Provider Family Medicine
DX: E11.9 Type 2 diabetes mellitus without complications (principal); I10 Essential (primary) hypertension
CPT/HCPCS: 36415; 80053; 80061; 82043; 82570; 83036

== ENCOUNTER → 2022-09-03 13:01 | Outpatient (CLI) | payer MEDICARE, OTHER, SELFPAY ==
--- NOTE | 2022-09-16 17:13 | DIAB.FU ---
Follow-up Diabetes Education Assessment Name: Kelly Jernigan Date: 09/03/22 Time: 105-155p Dx: Type II Diabetes Violette presents for DM follow-up. Reports taking novolog at dinner Plans to start lunch at the end of the week. Reports consistently waking around 4am with nausea. She reports low BG at this time and has a snack, though has not checked BG. Still wakes with in goal FBG after snack most mornings, indicating likely low at that time. This has occurred three time this week. May need to adjust long acting insulin down a couple units to prevent lows. Stats she is still working on water intake but feels overall this has improved. Some BG elevations assoc with higher CHO intake per diet recall, ie yogurt, granola, and peaches. Has not picked up GLP1. Concerns for insurance coverage. Physical Activity: Plans to restart gym. Self-Monitoring Blood Glucose: Most FBG in goal. One elevated breakfast reading after high carb breakfast. Few pc readings for review. Date Pre Post Pre Post Pre Post HS 08/23 101 08/24 123 08/25 snack at 3a 08/26 132 160 snack at 5a 08/27 107 09/02 95 09/03 71 164 snack at 230a Diabetes Medications: Metformin 1000mg BID Pioglitizone 15mg Levemir 30u Aspart 5u BID (taking only at dinner) Pertinent Labs: HgA1c: 08/2022: 9.3% 05/2022: 10.4% 03/2022: 9.7% 11/2021: 9.9% 09/2021: 10.9% Past Medical History: (Last Updated 05/23/22 @ 10:36 by Gonzalez Ellis DO) CVA (cerebral vascular accident) Diabetes GERD (gastroesophageal reflux disease) Hyperlipidemia Hypertension Insomnia Well adult exam Well adult exam Intervention: This participant was very receptive. Provided appropriate educational handouts. Discussed the following topics: Recent blood sugar results and trends Medication management: potential for reduction in evening insulin to reduce morning lows, starting aspart BID Review of general nutrition recommendations and current intake Physical activity plan and impact on blood sugars Rule of 15 for lows Insulin types and action Created SMART goals for patient self-care and success. Goals: Aim for 48oz water daily (2 of your water bottles)- in progress When feeling dizzy, check BG- in progress Call pharmacy to determine issue with insulin (insurance coverage? insulin preferences?)- met Check some pc readings- in progress Try light reduction in Levemir to 28u - new Add lunch ac insulin-new Call insurance about GLP1- new Pack gummy candies and cans of apple juice for lows- new Follow-up: SONIA RICO follow-up in 3-4 weeks Cecily Solorio RDN, [facility] Certified Diabetes Care and Court Supervisor P: [phone] Thank you for this referral
== END ==
PROVIDERS: PCP Family Medicine; Referring Provider Family Medicine; Visit Provider Family Medicine
DX: E11.9 Type 2 diabetes mellitus without complications (principal); Z71.3 Dietary counseling and surveillance; Z79.4 Long term (current) use of insulin; Z79.84 Long term (current) use of oral hypoglycemic drugs
CPT/HCPCS: G0108

== ENCOUNTER → 2022-10-01 15:29 | Outpatient (CLI) | payer MEDICARE, OTHER, SELFPAY ==
--- NOTE | 2022-10-15 14:49 | DIAB.FU ---
Follow-up Diabetes Education Assessment Name: Kelly Jernigan Date: 10/01/22 Time: 335-4p Dx: Type II Diabetes Violette presents today for DM follow-up. Reports no progress on getting the Trulicity. Continues with other DM meds. Did not reduce Lantus, but she no longer thinks waking at 2am is related to low BG. Checked once and had a 200mg/dl result. May be a good candidate for CGM. States she will consider this in the future. Physical Activity: Currently gym or walking 2 days per week. Aiming for 3x. Self-Monitoring Blood Glucose: FBG are currenly 92-145mg/dl with most under 130 this month. Pre lunch readings running 103-148mg/dl and few after meal reading of 229 and 127mg/dl. Diabetes Medications: Metformin 1000mg BID Pioglitizone 15mg Levemir 30u Aspart 5u BID Pertinent Labs: HgA1c: 08/2022: 9.3% 05/2022: 10.4% 03/2022: 9.7% 11/2021: 9.9% 09/2021: 10.9% Past Medical History: (Last Updated 05/23/22 @ 10:36 by Gonzalez Ellis DO) CVA (cerebral vascular accident) Diabetes GERD (gastroesophageal reflux disease) Hyperlipidemia Hypertension Insomnia Well adult exam Well adult exam Intervention: This participant was very receptive. Provided appropriate educational handouts. Discussed the following topics: Recent blood sugar results and trends Medication management Review of general nutrition recommendations and current intake Physical activity plan and progress SMBG after meals for more trends Created SMART goals for patient self-care and success. Goals: Try light reduction in Levemir to 28u - not met Add lunch ac insulin-met Call insurance about GLP1- met Pack gummy candies and cans of apple juice for lows- met Set alarms to check some postprandial readings- new Gym 3 x per week- new Check BG if wake in middle night- new Follow-up: SONIA RICO follow-up in July 2023 per pt request Cecily Solorio RDN, [facility] Certified Diabetes Care and Patient Registration Specialist P: [phone] Thank you for this referral
== END ==
PROVIDERS: PCP Family Medicine; Referring Provider Family Medicine; Visit Provider Family Medicine
DX: E11.9 Type 2 diabetes mellitus without complications (principal); Z79.84 Long term (current) use of oral hypoglycemic drugs; Z79.4 Long term (current) use of insulin; Z71.3 Dietary counseling and surveillance
CPT/HCPCS: G0108

== ENCOUNTER → 2022-11-24 08:19 | Outpatient (CLI) | payer MEDICARE, OTHER, SELFPAY ==
[2022-11-24 09:38] LABS: Cholesterol 151 mg/dL (140-199); HDL Cholesterol 49 mg/dL (40-60); LDL Cholesterol Calculated 87 mg/dL (<100); Triglycerides 74 mg/dL (35-150)
[2022-11-25 03:10] LABS: x Labcorp Estim. Avg Glu (eAG) 166 mg/dL (.); x Labcorp Hemoglobin A1c 7.4 % (4.8-5.6)
== END ==
PROVIDERS: PCP Family Medicine; Referring Provider Family Medicine; Visit Provider Family Medicine
DX: E11.9 Type 2 diabetes mellitus without complications (principal)
CPT/HCPCS: 36415; 80061; 83036

== ENCOUNTER → 2023-04-23 08:24 | Outpatient (CLI) | payer MEDICARE, OTHER, SELFPAY ==
[2023-04-23 09:38] LABS: Hemoglobin A1C% w Est Avg Glu 7.5 % (4.0-6.0)
[2023-04-23 09:45] LABS: Alanine Aminotransferase 16 IU/L (<35); Albumin 4.1 g/dL (3.5-5.0); Albumin Globulin Ratio 1.4 (1.0-2.8); Alkaline Phosphatase 57 U/L (38-126); Aspartate Aminotransferase 20 IU/L (14-36); BUN Creatinine Ratio 24.5 (6-22); Bilirubin Total 0.8 mg/dL (0.2-1.3); Blood Urea Nitrogen 24 mg/dL (7-17); Calcium 9.8 mg/dL (8.4-10.2); Carbon Dioxide 27 mmol/L (22-32); Chloride 103 mmol/L (98-107); Estimated Glomerular Filt Rate > 60 mL/min (>60); Glucose 181 mg/dL (80-110); HEMOLYSIS < 15 (0-50); Potassium 4.3 mmol/L (3.4-5.1); Sodium 137 mmol/L (137-145); Total Protein 7.1 g/dL (6.3-8.2)
[2023-04-23 10:12] LABS: TSH w/ Reflex to FT4 1.24 uIU/mL (0.47-4.68)
== END ==
PROVIDERS: PCP Family Medicine; Referring Provider Family Medicine; Visit Provider Family Medicine
DX: E11.9 Type 2 diabetes mellitus without complications (principal); I10 Essential (primary) hypertension; E78.2 Mixed hyperlipidemia
CPT/HCPCS: 36415; 80053; 83036; 84443

== ENCOUNTER → 2023-06-20 08:32 | Outpatient (CLI) | payer MEDICARE, OTHER, SELFPAY ==
--- NOTE | 2023-06-20 08:34 | DI.MG.S_ITS ---
BILATERAL DIGITAL SCREENING MAMMOGRAM 3D/2D WITH CAD: 06/20/2023 CLINICAL: Routine screening. Comparison is made to exams dated: 05/22/2022 mammogram, 05/20/2021 mammogram, and 05/10/2019 mammogram - [facility]. There are scattered areas of fibroglandular density in both breasts (category b / 25%-50% glandular tissue). Current study was also evaluated with a Computer Aided Detection (CAD) system. No significant masses, calcifications, or other findings are seen in either breast. There has been no significant interval change. IMPRESSION: NEGATIVE There is no mammographic evidence of malignancy. A 1 year screening mammogram is recommended. Based on the Tyrer Cuzick model (a risk assessment model) the patient's lifetime risk is 3.4% and her 10 year risk is 3.0%. According to the ACR, ACS, and NCCN guidelines, an annual breast MRI exam along with mammogram is recommended if the patient's lifetime risk is 20% or greater. This exam was interpreted at Station ID: [id number]. NOTE: For mammograms, a report in lay terms will be sent to the patient. Approximately 15% of breast malignancies will not be visualized mammographically. In the management of a palpable breast mass, a negative mammogram must not discourage biopsy of a clinically suspicious lesion. Electronically Signed By: Mildred de león/bear:06/22/2023 12:42:28 letter sent: Normal Exam ACR BI-RADS Category 1: Negative 3341F
== END ==
PROVIDERS: PCP Family Medicine; Referring Provider Family Medicine; Visit Provider Family Medicine
DX: Z12.31 Encounter for screening mammogram for malignant neoplasm of breast (principal)
CPT/HCPCS: 77063; 77067

== ENCOUNTER → 2023-09-10 09:43 | Outpatient (CLI) | payer MEDICARE, OTHER, SELFPAY ==
[2023-09-10 11:03] LABS: Alanine Aminotransferase 16 IU/L (<35); Albumin 3.9 g/dL (3.5-5.0); Albumin Globulin Ratio 1.4 (1.0-2.8); Alkaline Phosphatase 62 U/L (38-126); Aspartate Aminotransferase 18 IU/L (14-36); Bilirubin Total 0.6 mg/dL (0.2-1.3); Blood Urea Nitrogen 30 mg/dL (7-17); Calcium 9.7 mg/dL (8.4-10.2); Carbon Dioxide 29 mmol/L (22-32); Chloride 106 mmol/L (98-107); Cholesterol 169 mg/dL (140-199); Estimated Glomerular Filt Rate 55 mL/min (>60); Globulin 2.8 g/dL (1.7-4.1); Glucose 94 mg/dL (80-110); HDL Cholesterol 51 mg/dL (40-60); HEMOLYSIS < 15 (0-50); LDL Cholesterol Calculated 96 mg/dL (<100); Potassium 4.7 mmol/L (3.4-5.1); Sodium 139 mmol/L (137-145); Total Protein 6.7 g/dL (6.3-8.2); Triglycerides 112 mg/dL (35-150)
== END ==
PROVIDERS: PCP Family Medicine; Referring Provider Family Medicine; Visit Provider Family Medicine
DX: E11.9 Type 2 diabetes mellitus without complications (principal); E78.2 Mixed hyperlipidemia
CPT/HCPCS: 36415; 80053; 80061; 83036

== ENCOUNTER → 2024-03-25 08:54 | Outpatient (CLI) | payer MEDICARE, OTHER, SELFPAY ==
[2024-03-25 09:50] LABS: Hemoglobin A1C% w Est Avg Glu 7.7 % (4.0-6.0)
[2024-03-25 09:55] LABS: Alanine Aminotransferase 16 IU/L (<35); Albumin 3.8 g/dL (3.5-5.0); Albumin Globulin Ratio 1.3 (1.0-2.8); Alkaline Phosphatase 60 U/L (38-126); Aspartate Aminotransferase 17 IU/L (14-36); BUN Creatinine Ratio 25.7 (6-22); Bilirubin Total 0.4 mg/dL (0.2-1.3); Blood Urea Nitrogen 29 mg/dL (7-17); Carbon Dioxide 30 mmol/L (22-32); Chloride 104 mmol/L (98-107); Estimated Glomerular Filt Rate 51 mL/min (>60); Glucose 80 mg/dL (80-110); HEMOLYSIS < 15 (0-50); Potassium 4.7 mmol/L (3.4-5.1); Sodium 138 mmol/L (137-145); Total Protein 6.8 g/dL (6.3-8.2)
== END ==
PROVIDERS: PCP Family Medicine; Referring Provider Family Medicine; Visit Provider Family Medicine
DX: E11.9 Type 2 diabetes mellitus without complications (principal); I10 Essential (primary) hypertension
CPT/HCPCS: 36415; 80053; 83036

== ENCOUNTER → 2024-05-13 09:58 | Outpatient (CLI) | payer MEDICARE, OTHER, SELFPAY ==
--- NOTE | 2024-05-13 17:18 | DIAB.FU ---
Follow-up Diabetes Education Assessment Name: Kelly Jernigan (Violette) Date: 05/13/24 Time: 10-11a Dx: Type II Diabetes Violette presents today for DM follow-up. States hgA1c went up last summer due to being on their boat and not able to be as active. Also reports a few lows in the 50s during that trip. Low symptoms: sweaty, shaky. Sometimes skips breakfast insulin due to lower BG. [facility] PCP wanted her to take Trulicity but was not approved by insurance. Plans to check open enrollment for better GLP1 coverage. Wants to try CGm. Physical Activity: Occasional walking, no longer with gym membership. Considering going to local [email or web address]. Self-Monitoring Blood Glucose: FBG are currently 90-120mg/dl. checking frequently later in the day. Checks 2 hours after eating, usually around 120-130mg/dl. Diabetes Medications: Metformin 1000mg BID Pioglitizone 15mg Degludec 28-30u Aspart 5u BID -- breakfast and dinner-- forgets at lunch Pertinent Labs: HgA1c: 09/2021: 10.9% 11/2021: 9.9% 03/2022: 9.7% 05/2022: 10.4% 08/2022: 9.3% 03/2024: 7.7% Past Medical History: (Last Reviewed 03/28/24 @ 10:51 by Gonzalez Ellis DO) Cellulitis Cerumen impaction CVA (cerebral vascular accident) Diabetes GERD (gastroesophageal reflux disease) Hyperlipidemia Hypertension Insomnia Renal insufficiency, mild Well adult exam Well adult exam Intervention: This participant was very receptive. Provided appropriate educational handouts. Discussed the following topics: Recent blood sugar results and trends CGM Sample Reviewed CGM use and equipment Discussed when to check blood sugars using finger stick Reviewed high and low blood sugar signs/symptoms and treatment options Provided education for self-administration of CGM placement Educated patient on alarm settings Discussed how to remove and dispose of equipment Medication management: GLP1 v Insulin, action, SE, benefits Created SMART goals for patient self-care and success. Goals: Set alarms to check some postprandial readings- met Gym 3 x per week- not met Check BG if wake in middle night- met Wear CGM x 10 days- new Research coverage for GLP1 in [facility] plans- new Follow-up: S[place] follow-up in 2-3 weeks Cecily Solorio RDN, JACKY Certified Diabetes Care and Provider Network Mgr P: [phone] Thank you for this referral
== END ==
PROVIDERS: PCP Family Medicine; Referring Provider Family Medicine
DX: E11.9 Type 2 diabetes mellitus without complications (principal); Z71.3 Dietary counseling and surveillance; Z79.84 Long term (current) use of oral hypoglycemic drugs; Z79.4 Long term (current) use of insulin
CPT/HCPCS: G0108

== ENCOUNTER → 2024-05-27 13:53 | Outpatient (CLI) | payer MEDICARE, OTHER, SELFPAY ==
--- NOTE | 2024-06-17 09:42 | DIAB.MNTFU ---
Follow-up Diabetes Medical Nutrition Therapy Assessment Name: Kelly Jernigan (Violette) Date: 05/27/24 Time: 215-3p Dx: Type II Diabetes Violette presents today for DM follow-up. Approved for CGM and plans to receive personal CGM from [facility] soon. 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 Just stopped meal time insulin per report. Had lows of 60s recently. Trated with chocolate, cereal with sugar. Still wanting to check in with insurance about GLP1 Diet Recall: 9a: 1/2c granola with berries, yogurt libyan low fat, coffee black: approx 50g CHO 1p: egg muffin egg salad 6-7p: spaghetti with zucchini noodles no carb OR protein with veggie and 1/2c CHO sn: nothing or apple water 48oz Physical Activity: Occasional walking, no longer with gym membership. Considering going to local [employer]. Self-Monitoring Blood Glucose: Wore CGM sample TIR: 2% very high 22% high 75% in range 1% low <1% very low avmg/dl GMI: 6.9% 29.2% Diabetes Medications: Metformin 1000mg BID Pioglitizone 15mg Degludec 28-30u Aspart 5u BID -- breakfast and dinner-- forgets at lunch -- not taking Pertinent Labs: HgA1c: 09/2021: 10.9% 11/2021: 9.9% 03/2022: 9.7% 05/2022: 10.4% 08/2022: 9.3% 03/2024: 7.7% Past Medical History: (Last Reviewed 03/28/24 @ 10:51 by Gonzalez Ellis DO) Cellulitis Cerumen impaction CVA (cerebral vascular accident) Diabetes GERD (gastroesophageal reflux disease) Hyperlipidemia Hypertension Insomnia Renal insufficiency, mild Well adult exam Well adult exam Nutrition Rx: Carbohydrates: Meal:30-45g Snack:15-30g Nutrition Diagnosis: Nutrition knowledge deficit r/t pt unclear of how much carb is rec and tx of lows aeb pt report Excessive CHO intake r/t nutrition knowledge deficit aeb breakfast in diet recall Intervention: This participant was very receptive. Provided appropriate educational handouts. Discussed the following topics: Recent blood sugar results and trends Reducing CHO at breakfast and increasing fiber Rule of 15 for tx lows s/s lows Insulin recs at meals GLP1 vs Insulin Created SMART goals for patient self-care and success. Goals: Set alarms to check some postprandial readings- met Gym 3 x per week- not met Check BG if wake in middle night- met Wear CGM x 10 days- met Research coverage for GLP1 in [facility] plans- in progress Try seeds/nuts in yogurt and reduce granola - new Mealtime insulin: 5u large meal, 2-3u small meal, 0g if no CHO Follow-up: [place] follow-up in 3-4 weeks Cecily Solorio RDN, JACKY Certified Diabetes Care and Dry Cans Operator P: [phone] Thank you for this referral
== END ==
PROVIDERS: PCP Family Medicine; Referring Provider Family Medicine
DX: E11.9 Type 2 diabetes mellitus without complications (principal); Z71.3 Dietary counseling and surveillance; Z79.84 Long term (current) use of oral hypoglycemic drugs; Z79.4 Long term (current) use of insulin
CPT/HCPCS: 97803

== ENCOUNTER → 2024-06-17 09:59 | Outpatient (CLI) | payer MEDICARE, OTHER, SELFPAY ==
--- NOTE | 2024-06-17 10:16 | DIAB.FU ---
Follow-up Diabetes Education Assessment: Personal CGM Name: Kelly Jernigan (Violette) Date: 06/17/24 Time: 10a Dx: Type II Diabetes Violette presents today for DM follow-up. Brought her personal CGM for education and setup. BG 55mg/dl after dinner last night. Treated with honey. Took 5u for tatertot casserole. Physical Activity: Occasional walking, no longer with gym membership. Considering going to local pool. Self-Monitoring Blood Glucose: Wore CGM sample TIR: 2% very high 22% high 75% in range 1% low <1% very low avmg/dl GMI: 6.9% 29.2% Diabetes Medications: Metformin 1000mg BID Pioglitizone 15mg Degludec 28-30u Aspart 5u ac -- taking at dinner only now Pertinent Labs: HgA1c: 09/2021: 10.9% 11/2021: 9.9% 03/2022: 9.7% 05/2022: 10.4% 08/2022: 9.3% 03/2024: 7.7% Past Medical History: (Last Reviewed 03/28/24 @ 10:51 by Gonzalez Ellis DO) Cellulitis Cerumen impaction CVA (cerebral vascular accident) Diabetes GERD (gastroesophageal reflux disease) Hyperlipidemia Hypertension Insomnia Renal insufficiency, mild Well adult exam Well adult exam Intervention: This participant was very receptive. Provided appropriate educational handouts. Discussed the following topics: Self placement of personal CGM Reviewed CGM use and equipment Discussed when to check blood sugars using finger stick Reviewed high and low blood sugar signs/symptoms and treatment options Provided education for self-administration of CGM placement Educated patient on alarm settings Discussed how to remove and dispose of equipment Insulin recs at meals Created SMART goals for patient self-care and success. Goals: Research coverage for GLP1 in [facility] plans- in progress Try seeds/nuts in yogurt and reduce granola - met Mealtime insulin: 5u large meal, 2-3u small meal, 0g if no CHO- in progress Try 2-3u with leftover tatertot meal- new Follow-up: [place] follow-up in 3-4 weeks Cecily Solorio RDN, JACKY Certified Diabetes Care and Lead Manufacturing Engineer P: [phone] Thank you for this referral
== END ==
PROVIDERS: PCP Family Medicine; Referring Provider Family Medicine
DX: E11.9 Type 2 diabetes mellitus without complications (principal); Z71.3 Dietary counseling and surveillance; Z79.84 Long term (current) use of oral hypoglycemic drugs; Z79.4 Long term (current) use of insulin
CPT/HCPCS: 95249

== ENCOUNTER → 2024-07-14 08:21 | Outpatient (CLI) | payer MEDICARE, OTHER, SELFPAY ==
[2024-07-14 09:04] LABS: Hemoglobin A1C% w Est Avg Glu 6.9 % (4.0-6.0)
[2024-07-14 09:10] LABS: Alanine Aminotransferase 17 IU/L (<35); Albumin 4.1 g/dL (3.5-5.0); Albumin Globulin Ratio 1.6 (1.0-2.8); Alkaline Phosphatase 52 U/L (38-126); Aspartate Aminotransferase 19 IU/L (14-36); Bilirubin Total 0.5 mg/dL (0.2-1.3); Blood Urea Nitrogen 27 mg/dL (7-17); Carbon Dioxide 29 mmol/L (22-32); Chloride 106 mmol/L (98-107); Cholesterol 192 mg/dL (140-199); Estimated Glomerular Filt Rate 46 mL/min (>60); Globulin 2.6 g/dL (1.7-4.1); Glucose 90 mg/dL (80-110); HDL Cholesterol 57 mg/dL (40-60); HEMOLYSIS < 15 (0-50); LDL Cholesterol Calculated 118 mg/dL (<100); Potassium 4.7 mmol/L (3.4-5.1); Sodium 139 mmol/L (137-145); Total Protein 6.7 g/dL (6.3-8.2); Triglycerides 86 mg/dL (35-150)
[2024-07-14 11:02] LABS: Creatinine Urine Random 98.53 mg/dL
[2024-07-14 11:06] LABS: Microalbumin Urine Random 2.7 mg/dL (0-1.6)
== END ==
PROVIDERS: PCP Family Medicine; Referring Provider Family Medicine; Visit Provider Family Medicine
DX: E11.9 Type 2 diabetes mellitus without complications (principal); I10 Essential (primary) hypertension; E78.2 Mixed hyperlipidemia
CPT/HCPCS: 36415; 80053; 80061; 82043; 82570; 83036

== ENCOUNTER → 2024-08-10 08:56 | Outpatient (CLI) | payer MEDICARE, OTHER, SELFPAY ==
--- NOTE | 2024-08-10 09:51 | DIAB.FU ---
Follow-up Diabetes Education Assessment Name: Kelly Jernigan (Violette) Date: 08/10/24 Time: 9-945 Dx: Type II Diabetes Violette presents today for DM follow-up. Much improved hgA1c. Questions about CGM accuracy and calibration. Questions about CGm placement. Ozempic not currently affordable. Reduced HS insulin from 28-30u to 22u. Questions about lows on CGM Does not seem like she has had any true lows recently. H/o low symptoms feels weird, sweaty. Trying to stay hydrated. Wanting snack ideas. Reduced cereal portions and added flaxseed. Current snacks include apples, oranges, crackers and cheese Wanting to lose some wt. Physical Activity: Occasional walking. Trying to do exercises at home. Quit the gym recently due to not using during trip. Consider a pool membership or [employer]. Self-Monitoring Blood Glucose: Wearing personal CGM. OFten >130 waking, may benefit from higher HS dose. Often elevated after dinner. Minimal lows. Today TIR: 1% very high 25% high 74% in range 0% low 0% very low avmg/dl GMI: 6.9% variation: 26.4% Last TIR: 2% very high 22% high 75% in range 1% low <1% very low avmg/dl GMI: 6.9% variation: 29.2% Diabetes Medications: Metformin 1000mg BID Pioglitizone 15mg Degludec 22u Novolog 5-7u ac -- taking breakfast and dinner Pertinent Labs: HgA1c: 09/2021: 10.9% 11/2021: 9.9% 03/2022: 9.7% 05/2022: 10.4% 08/2022: 9.3% 03/2024: 7.7% 07/2024 6.9% Past Medical History: (Last Updated 08/01/24 @ 17:42 by Gonzalez Ellis DO) Cellulitis Cerumen impaction CVA (cerebral vascular accident) Diabetes GERD (gastroesophageal reflux disease) Hyperlipidemia Hypertension Insomnia Renal insufficiency, mild Well adult exam Well adult exam Intervention: This participant was very receptive. Provided appropriate educational handouts. Discussed the following topics: Snack list and ideas Insulin recs BG trends Accuracy between finger sticks and CGM If starting Ozempic eventually, need to reduce insulin. Will f/u with PCP on this Weight management Physical activity Created SMART goals for patient self-care and success. Goals: Research coverage for GLP1 in [facility] plans- met Try 2-3u with leftover tatertot meal- continue Look into pool membership or [employer]- new Check out mini stationary bike- new Follow-up: S[place] follow-up prn per pt request. Overall, Violette is doing well managing her DM. Plans to try and work on physical activity and will check in as needed. Cecily Solorio, SONIA, [facility] Certified Diabetes Care and Vice President Investor Relations P: [phone] Thank you for this referral
== END ==
PROVIDERS: PCP Family Medicine; Referring Provider Family Medicine
DX: E11.9 Type 2 diabetes mellitus without complications (principal); Z79.84 Long term (current) use of oral hypoglycemic drugs; Z79.4 Long term (current) use of insulin; Z71.3 Dietary counseling and surveillance
CPT/HCPCS: G0108

== ENCOUNTER → 2024-11-03 08:23 | Outpatient (CLI) | payer MEDICARE, OTHER, SELFPAY ==
[2024-11-03 09:24] LABS: Creatinine Urine Random 62.79 mg/dL
[2024-11-03 09:34] LABS: Hemoglobin A1C% w Est Avg Glu 6.4 % (4.0-6.0)
[2024-11-03 09:41] LABS: Alanine Aminotransferase 20 IU/L (<35); Albumin Globulin Ratio 1.7 (1.0-2.8); Alkaline Phosphatase 56 U/L (38-126); Aspartate Aminotransferase 20 IU/L (14-36); BUN Creatinine Ratio 29.7 (6-22); Bilirubin Total 0.7 mg/dL (0.2-1.3); Blood Urea Nitrogen 30 mg/dL (7-17); Calcium 9.6 mg/dL (8.4-10.2); Carbon Dioxide 26 mmol/L (22-32); Chloride 105 mmol/L (98-107); Estimated Glomerular Filt Rate 58 mL/min (>60); Globulin 2.4 g/dL (1.7-4.1); Glucose 154 mg/dL (70-99); HEMOLYSIS < 15 (0-50); Potassium 4.8 mmol/L (3.4-5.1); Sodium 138 mmol/L (137-145); Total Protein 6.4 g/dL (6.3-8.2)
[2024-11-03 09:46] LABS: Microalbumin Urine Random < 0.6 mg/dL (0-1.6)
== END ==
PROVIDERS: PCP Family Medicine; Referring Provider Family Medicine; Visit Provider Family Medicine
DX: E11.9 Type 2 diabetes mellitus without complications (principal); E78.2 Mixed hyperlipidemia; I10 Essential (primary) hypertension
CPT/HCPCS: 36415; 80053; 82043; 82570; 83036

== ENCOUNTER → 2024-11-22 14:04 | Outpatient (CLI) | payer MEDICARE, OTHER, SELFPAY ==
--- NOTE | 2024-11-22 14:05 | DI.MG.S_ITS ---
MM screening mammo BI: 11/22/2024. BI-RADS: 1 CLINICAL: 74-year old female for bilateral screening mammogram. Tyrer-Cuzick lifetime risk of 2.2%. No personal or first-degree family history of breast cancer. PRIOR EXAMS 06/20/2023, 05/22/2022, 05/20/2021, 05/10/2019, 08/07/2016, 07/29/2016. MAMMOGRAPHY TECHNIQUE: 2D and 3D (tomosynthesis) digital mammographic views obtained, with additional images as needed for full coverage. Current study was also evaluated with a Computer Aided Detection (CAD) system. DENSITY B. There are scattered areas of fibroglandular density. MAMMOGRAPHY FINDINGS Bilateral: No suspicious mass, asymmetry, microcalcification, or other abnormality seen. IMPRESSION: * No evidence of malignancy. RECOMMENDATIONS Bilateral * Annual screening mammography. OVERALL ASSESSMENT CATEGORY BI-RADS-1: Negative. The [employer] recommends annual screening mammography beginning at age 40 for women with average risk of breast cancer. ELECTRONICALLY SIGNED: Joseph Ortega M.D. on 11/23/2024 at 10:57:35 AM PT Interpreting Station ID: [id number]
== END ==
LOC: MAMMO 14:04
PROVIDERS: PCP Family Medicine; Referring Provider Family Medicine; Visit Provider Family Medicine
DX: Z12.31 Encounter for screening mammogram for malignant neoplasm of breast (principal)
CPT/HCPCS: 77063; 77067

== ENCOUNTER → 2025-04-04 10:31 | Outpatient (CLI) | payer MEDICARE, OTHER, SELFPAY ==
[2025-04-04 11:38] LABS: Add Manual Diff / Slide Review NO; Hematocrit 32.5 % (36-46); Hemoglobin 11.2 g/dL (12.0-16.0); Lymphocytes Absolute Auto 1300 /uL (1100-4500); Mean Corpuscular HGB Conc 34.3 % (30-36); Mean Corpuscular Hemoglobin 29.0 PG (26-34); Mean Corpuscular Volume 84.6 fL (80-100); Platelet Count 282 X10^3/uL (150-400)
[2025-04-04 11:59] LABS: Alanine Aminotransferase 15 IU/L (<35); Albumin 3.9 g/dL (3.5-5.0); Albumin Globulin Ratio 1.5 (1.0-2.8); Alkaline Phosphatase 56 U/L (38-126); Blood Urea Nitrogen 22 mg/dL (7-17); Calcium 9.5 mg/dL (8.4-10.2); Carbon Dioxide 24 mmol/L (22-32); Chloride 104 mmol/L (98-107); Estimated Glomerular Filt Rate 59 mL/min (>60); Globulin 2.6 g/dL (1.7-4.1); Glucose 178 mg/dL (70-99); HEMOLYSIS < 15 (0-50); Potassium 5.2 mmol/L (3.4-5.1); Sodium 137 mmol/L (137-145); Total Protein 6.5 g/dL (6.3-8.2)
[2025-04-04 12:07] LABS: Hemoglobin A1C% w Est Avg Glu 7.5 % (4.0-6.0)
[2025-04-04 12:08] LABS: NT-proBNP (BNP-Adult 18+) 96 pg/mL (<450)
[2025-04-04 12:31] LABS: TSH w/ Reflex to FT4 1.09 uIU/mL (0.47-4.68)
== END ==
PROVIDERS: PCP Family Medicine; Referring Provider Family Medicine; Visit Provider Family Medicine
DX: R01.1 Cardiac murmur, unspecified (principal); E11.9 Type 2 diabetes mellitus without complications; N28.9 Disorder of kidney and ureter, unspecified; I10 Essential (primary) hypertension; L03.119 Cellulitis of unspecified part of limb; R06.09 Other forms of dyspnea
CPT/HCPCS: 36415; 80053; 83036; 83880; 84443; 85025

== ENCOUNTER → 2025-04-25 15:24 | Outpatient (CLI) | payer MEDICARE, OTHER, SELFPAY ==
[2025-04-25 17:15] LABS: Add Manual Diff / Slide Review NO; Hematocrit 35.4 % (36-46); Hemoglobin 12.1 g/dL (12.0-16.0); Lymphocytes Absolute Auto 1900 /uL (1100-4500); Mean Corpuscular HGB Conc 34.3 % (30-36); Mean Corpuscular Hemoglobin 28.8 PG (26-34); Mean Corpuscular Volume 84.0 fL (80-100); Platelet Count 254 X10^3/uL (150-400)
[2025-04-25 17:40] LABS: Alanine Aminotransferase 16 IU/L (<35); Albumin 4.0 g/dL (3.5-5.0); Albumin Globulin Ratio 1.4 (1.0-2.8); Alkaline Phosphatase 61 U/L (38-126); Blood Urea Nitrogen 35 mg/dL (7-17); Calcium 9.9 mg/dL (8.4-10.2); Carbon Dioxide 26 mmol/L (22-32); Chloride 102 mmol/L (98-107); Estimated Glomerular Filt Rate 45 mL/min (>60); Globulin 2.8 g/dL (1.7-4.1); Glucose 143 mg/dL (70-99); HEMOLYSIS < 15 (0-50); Iron 50 ug/dL (37-170); Potassium 4.6 mmol/L (3.4-5.1); Sodium 136 mmol/L (137-145); Total Protein 6.8 g/dL (6.3-8.2)
[2025-04-25 17:53] LABS: Percent Iron Saturation 18 % (15-50); Total Iron Binding Capacity 273 ug/dL (265-497); Transferrin 244 mg/dL (206-381)
[2025-04-25 18:54] LABS: Hemoglobin A1C% w Est Avg Glu 7.2 % (4.0-6.0)
== END ==
PROVIDERS: PCP Family Medicine; Referring Provider Family Medicine; Visit Provider Family Medicine
DX: E11.9 Type 2 diabetes mellitus without complications (principal); I10 Essential (primary) hypertension; N28.9 Disorder of kidney and ureter, unspecified
CPT/HCPCS: 36415; 80053; 83036; 83540; 83550; 85025

== ENCOUNTER → 2025-05-26 09:59 | Outpatient (CLI) | payer MEDICARE, OTHER, SELFPAY ==
--- NOTE | 2025-05-26 10:50 | DIAB.MNTFU ---
Follow-up Diabetes Medical Nutrition Therapy Assessment Name: Kelly Jernigan (Violette) Date: 05/26/25 Time: [id number] Dx: Type II Diabetes Violette presents today for DM follow-up. Endorses feeling as though CGM may be running higher than actual BG. Needs education on calibration for CGM. Diet is in within rec. Continues on MDI. Plans to start GLP1 in July after discussion with insurance and better coverage starting 2025 per report. Improved physical activity, which she admits is usually a challenge. Diet recall: 9am: wolof yogurt with 1/3c granola 1/2c berries OR eng muffin with egg and low fat sausage 1p: can chx noodle soup +/-4 crackers 6p: protein, veggies and 1/2-1c CHO snack: apple or 2/3c ice cream water 64 oz with splash sf juice coffee Physical Activity: 3x per week walking with , approx 4-5 miles. Self-Monitoring Blood Glucose: Wearing personal CGM. Per reports, excessive elevations. Not consistent with diet/exercise changes and hgA1c. Encouraged finger sticks. Today TIR: 33% very high 43% high 24% in range 0% low 0% very low avmg/dl GMI: 8.6% variation: 27.1% Last TIR: 1% very high 25% high 74% in range 0% low 0% very low avmg/dl GMI: 6.9% variation: 26.4% Diabetes Medications: Metformin 1000mg BID Pioglitizone 15mg--- d/c Glargine 20u Novolog 5u ac -- taking breakfast and dinner Pertinent Labs: HgA1c: 09/2021: 10.9% 11/2021: 9.9% 03/2022: 9.7% 05/2022: 10.4% 08/2022: 9.3% 03/2024: 7.7% 07/2024 6.9% 04/2025 7.2% Past Medical History: (Last Updated 08/01/24 @ 17:42 by Gonzalez Ellis DO) Cellulitis Cerumen impaction CVA (cerebral vascular accident) Diabetes GERD (gastroesophageal reflux disease) Hyperlipidemia Hypertension Insomnia Renal insufficiency, mild Well adult exam Well adult exam Nutrition Rx: Carbohydrates: Meal:30-45gSnack:15-30g Nutrition Diagnosis: none Intervention: This participant was very receptive. Provided appropriate educational handouts. Discussed the following topics: Review of nutrition and phys activity changes Review of CGM vs BG accuracy Encoruaged fingersticks Review of hydration intake and recs Created SMART goals for patient self-care and success. Goals: Look into pool membership or [employer]- not met Check out mini stationary bike- not met Calibrate CGM- new Continue lifestyle change- new Follow-up: S[place] follow-up in July per pt req to review Ozempic injection technique, etc. Cecily Solorio RDN, [facility] Certified Diabetes Care and Street Supervisor P: [phone] Thank you for this referral
== END ==
LOC: DIET 10:00
PROVIDERS: PCP Family Medicine; Referring Provider Family Medicine
DX: E11.9 Type 2 diabetes mellitus without complications (principal); Z79.84 Long term (current) use of oral hypoglycemic drugs; Z79.4 Long term (current) use of insulin
CPT/HCPCS: 97803